=== PATIENT | female | born 1970 | race Caucasian/White ===

== ENCOUNTER 2022-02-18 14:59 | Inpatient (IN) | payer MEDICARE, MEDICAID ==
[~2022-02-18] VITALS: Ht 165.1 cm; Wt 66.2 kg
[2022-02-18] MEDS ORDERED: ACETAMINOPHEN 325MG TABLET PO NR (16:30)
[2022-02-18] MEDS ORDERED: IOHEXOL-350 100 ML BOTTLE ONE (17:15)
[2022-02-18] MEDS ORDERED: ACETAMINOPHEN 650MG SUPP PR ONE (17:45)
[2022-02-18 17:54] LABS: HEMATOCRIT. 35.9 % (36.0-48.0); MEAN CORPUSCULAR HEMOGLOBIN 31.9 pg (28.0-32.0); MEAN CORPUSCULAR VOLUME 95.6 fL (81.0-99.0); MEAN PLATELET VOLUME 9.2 fl (7.4-10.4); PLATELET 89 x1000/uL (130-400); RED BLOOD CELL COUNT 3.75 mill/uL (4.2-5.4); RED CELL DISTRIBUTION WIDTH 16.3 % (11.6-14.6)
[2022-02-18 18:13] LABS: CHLORIDE 108 mEq/L (98-107)
[2022-02-18 18:22] LABS: ETHANOL BLOOD < 10 mg/dL
[2022-02-18 18:27] LABS: CLARITY URINE CLOUDY (CLEAR); COLOR URINE YELLOW (YELLOW); KETONES URINE NEGATIVE (NEGATIVE); LEUKOCYTE ESTERASE URINE 3+ (NEGATIVE); NITRITE URINE NEGATIVE (NEGATIVE); OCCULT BLOOD URINE 3+ (NEGATIVE); PROTEIN URINE 2+ (NEGATIVE); SPECIFIC GRAVITY URINE 1.044 (1.005-1.030)
[2022-02-18 18:29] LABS: PLATELET ESTIMATE DECREASED
[2022-02-18 18:40] LABS: *AMPHETAMINES SCREEN URINE NEGATIVE (NEGATIVE); *BARBITURATES SCREEN URINE NEGATIVE (NEGATIVE); *BENZODIAZEPINES SCREEN URINE NEGATIVE (NEGATIVE); *COCAINE SCREEN URINE NEGATIVE (NEGATIVE); CANNABINOID URINE SCREEN NEGATIVE (NEGATIVE); METHADONE URINE SCREEN NEGATIVE (NEGATIVE); OPIATES URINE SCREEN NEGATIVE (NEGATIVE); PHENCYCLIDINE URINE SCREEN NEGATIVE (NEGATIVE)
[2022-02-18] MEDS ORDERED: SODIUM CHLORIDE 0.9% 1,000 ML IV ONE (18:45)
[2022-02-18] MEDS ORDERED: IPRATROPIUM/ALBUTEROL 0.5-3(2.5)MG/3ML NEB HHN PRN (19:15)
[2022-02-18] MEDS ORDERED: CLONIDINE 0.1MG TABLET PO PRN (19:15)
[2022-02-18] MEDS ORDERED: ACETAMINOPHEN 325MG TABLET PO PRN (19:15)
[2022-02-18] MEDS ORDERED: DIPHENHYDRAMINE 50MG/ML VIAL IV PRN (19:15)
[2022-02-18] MEDS ORDERED: ONDANSETRON HCL 4MG/2ML INJ IV PRN (19:15)
[2022-02-18] MEDS ORDERED: CEFTRIAXONE 1 G PREMIX 50 ML IV NR (19:30)
[2022-02-18] MEDS: SODIUM CHLORIDE 0.9% 1,000 ML IV SCH (20:20)
[2022-02-18 22:55] VITALS: BP 104/72
[2022-02-19] VITALS: BP 95/60
[2022-02-19 04:00] VITALS: BP 108/57
[2022-02-19 07:29] LABS: CHLORIDE 110 mEq/L (98-107)
[2022-02-19 08:00] VITALS: BP 108/58
[2022-02-19 08:07] LABS: BASOPHILS % 0.2 % (0.0-2.0); EOSINOPHILS % 0.2 % (0.0-5.0); HEMATOCRIT. 31.3 % (36.0-48.0); HEMOGLOBIN. 10.6 g/dL (12.0-16.0); LYMPHOCYTES % 9.3 % (20.0-50.0); MEAN CORPUSCULAR HEMOGLOBIN 31.8 pg (28.0-32.0); MEAN CORPUSCULAR VOLUME 94.3 fL (81.0-99.0); MEAN PLATELET VOLUME 9.2 fl (7.4-10.4); MONOCYTES % 12.5 % (2.0-8.0); NEUTROPHILS % 77.8 % (40.0-76.0); PLATELET 78 x1000/uL (130-400); RED BLOOD CELL COUNT 3.32 mill/uL (4.2-5.4); RED CELL DISTRIBUTION WIDTH 15.8 % (11.6-14.6)
[2022-02-19 12:00] VITALS: BP 108/58
[2022-02-19 16:00] VITALS: BP 103/49
[2022-02-19] MEDS: SODIUM CHLORIDE 0.9% 1,000 ML IV SCH (18:26)
[2022-02-19] MEDS: CEFTRIAXONE 1,000 MG in DEXTROSE 5% WATER 50 ML IV SCH (18:26)
[2022-02-19 20:00] VITALS: BP 121/62
[2022-02-20] VITALS: BP 106/66
[2022-02-20 04:00] VITALS: BP 144/66
[2022-02-20 08:00] VITALS: BP 116/66
[2022-02-20 12:00] VITALS: BP 120/50
[2022-02-20 16:00] VITALS: BP 118/49
[2022-02-20] MEDS: CEFTRIAXONE 1,000 MG in DEXTROSE 5% WATER 50 ML IV SCH (17:54)
[2022-02-20] MEDS ORDERED: ENOXAPARIN 80MG/0.8ML SYR SUBCUT SCH (21:00)
[2022-02-20 21:31] LABS: PROTHROMBIN TIME 10.9 sec (9.6-11.0)
[2022-02-21] VITALS (7 sets, daily range): BP systolic 96–121; BP diastolic 48–67
[2022-02-21] MEDS: SODIUM CHLORIDE 0.9% 1,000 ML IV SCH (00:40)
[2022-02-21 07:03] LABS: BASOPHILS % 0.5 % (0.0-2.0); EOSINOPHILS % 0.7 % (0.0-5.0); HEMATOCRIT. 31.3 % (36.0-48.0); HEMOGLOBIN. 10.5 g/dL (12.0-16.0); LYMPHOCYTES % 20.6 % (20.0-50.0); MEAN CORPUSCULAR HEMOGLOBIN 31.7 pg (28.0-32.0); MEAN CORPUSCULAR VOLUME 94.1 fL (81.0-99.0); MEAN PLATELET VOLUME 8.5 fl (7.4-10.4); MONOCYTES % 12.9 % (2.0-8.0); NEUTROPHILS % 65.3 % (40.0-76.0); PLATELET 120 x1000/uL (130-400); RED BLOOD CELL COUNT 3.33 mill/uL (4.2-5.4); RED CELL DISTRIBUTION WIDTH 15.9 % (11.6-14.6)
[2022-02-21 07:07] LABS: CHLORIDE 109 mEq/L (98-107)
[2022-02-21 07:30] LABS: HDL CHOLESTEROL 24 mg/dL (40-59); LDL CHOLESTEROL 66 mg/dL (5-100)
[2022-02-21] MEDS ORDERED: NITR-87 MT (11:24)
[2022-02-21] MEDS: LEVOTHYROXINE SODIUM 125MCG TABLET PO SCH (16:55)
[2022-02-21] MEDS: OMEPRAZOLE 20MG CAPSULE EXTENDED RELEASE PO SCH (16:55)
[2022-02-21] MEDS: LORATADINE 10MG TABLET PO SCH (16:55)
[2022-02-21] MEDS: CEFTRIAXONE 1,000 MG in DEXTROSE 5% WATER 50 ML IV SCH (17:59)
[2022-02-21] MEDS: OXYBUTYNIN CHLORIDE 5MG TABLET PO SCH (21:09)
[2022-02-21] MEDS: ATORVASTATIN CALCIUM 20MG TABLET PO SCH (21:09)
[2022-02-21] MEDS: DIVALPROEX SODIUM 500MG DR TABLET PO SCH (21:09)
[2022-02-21] MEDS: OLANZAPINE 5MG TABLET PO SCH (21:09)
[2022-02-21] MEDS: FLUTICASONE PROPIONATE 50MCG/SPRAY BOTTLE BOTHNSTRLS SCH (21:09)
[2022-02-21] MEDS: ENOXAPARIN 80MG/0.8ML SYR SUBCUT SCH (21:10)
[2022-02-22] VITALS: BP 115/63
[2022-02-22 04:00] VITALS: BP 106/42
[2022-02-22 08:00] VITALS: BP 92/45
[2022-02-22] MEDS: OMEPRAZOLE 20MG CAPSULE EXTENDED RELEASE PO SCH (08:16)
[2022-02-22] MEDS: LORATADINE 10MG TABLET PO SCH (08:16)
[2022-02-22] MEDS: LEVOTHYROXINE SODIUM 125MCG TABLET PO SCH (08:16)
[2022-02-22] MEDS: FLUTICASONE PROPIONATE 50MCG/SPRAY BOTTLE BOTHNSTRLS SCH ×2 (08:17→20:30)
[2022-02-22] MEDS: ENOXAPARIN 80MG/0.8ML SYR SUBCUT SCH ×2 (09:03→20:29)
[2022-02-22 11:59] VITALS: BP 90/59
[2022-02-22 16:00] VITALS: BP 90/54
[2022-02-22] MEDS: CEFTRIAXONE 1,000 MG in DEXTROSE 5% WATER 50 ML IV SCH (18:00)
[2022-02-22 20:00] VITALS: BP 98/64
[2022-02-22] MEDS: ATORVASTATIN CALCIUM 20MG TABLET PO SCH (20:28)
[2022-02-22] MEDS: DIVALPROEX SODIUM 500MG DR TABLET PO SCH (20:28)
[2022-02-22] MEDS: OXYBUTYNIN CHLORIDE 5MG TABLET PO SCH (20:29)
[2022-02-22] MEDS: OLANZAPINE 5MG TABLET PO SCH (20:32)
[2022-02-23] VITALS: BP 105/59
[2022-02-23 04:00] VITALS: BP 99/55
[2022-02-23] MEDS: OMEPRAZOLE 20MG CAPSULE EXTENDED RELEASE PO SCH (06:39)
[2022-02-23] MEDS: LEVOTHYROXINE SODIUM 125MCG TABLET PO SCH (06:40)
[2022-02-23 08:00] VITALS: BP 105/66
[2022-02-23] MEDS: ENOXAPARIN 80MG/0.8ML SYR SUBCUT SCH ×2 (08:55→21:20)
[2022-02-23] MEDS: LORATADINE 10MG TABLET PO SCH (08:55)
[2022-02-23] MEDS: FLUTICASONE PROPIONATE 50MCG/SPRAY BOTTLE BOTHNSTRLS SCH ×2 (08:55→21:19)
[2022-02-23 12:00] VITALS: BP 112/63
[2022-02-23 16:00] VITALS: BP 100/77
[2022-02-23 20:00] VITALS: BP 113/59
[2022-02-23] MEDS: CEFTRIAXONE 1,000 MG in DEXTROSE 5% WATER 50 ML IV SCH (21:19)
[2022-02-23] MEDS: ATORVASTATIN CALCIUM 20MG TABLET PO SCH (21:21)
[2022-02-23] MEDS: DIVALPROEX SODIUM 500MG DR TABLET PO SCH (21:22)
[2022-02-23] MEDS: OLANZAPINE 5MG TABLET PO SCH (21:22)
[2022-02-23] MEDS: OXYBUTYNIN CHLORIDE 5MG TABLET PO SCH (21:22)
[2022-02-24] VITALS: BP 103/56
[2022-02-24 04:00] VITALS: BP 119/67
[2022-02-24 08:00] VITALS: BP 108/68
[2022-02-24] MEDS: LEVOTHYROXINE SODIUM 125MCG TABLET PO SCH (09:21)
[2022-02-24] MEDS: LORATADINE 10MG TABLET PO SCH (09:21)
[2022-02-24] MEDS: OMEPRAZOLE 20MG CAPSULE EXTENDED RELEASE PO SCH (09:21)
[2022-02-24] MEDS: ENOXAPARIN 80MG/0.8ML SYR SUBCUT SCH (09:22)
[2022-02-24] MEDS: FLUTICASONE PROPIONATE 50MCG/SPRAY BOTTLE BOTHNSTRLS SCH (09:23)
[2022-02-24] MEDS ORDERED: FAMOTIDINE 20MG TABLET PO SCH (17:00)
== END 2022-02-24 17:50 | disposition home or self-care (01) | DRG 690 ==
LOC: ER 14:59 → 7WST 18:39 → EDBEDREQTM 18:45 → EDBEDREQ 18:45
PROVIDERS: ADMIT Internal Medicine; ATTEND Internal Medicine
DX: N39.0 Urinary tract infection, site not specified (principal); E44.0 Moderate protein-calorie malnutrition; F72 Severe intellectual disabilities; N17.9 Acute kidney failure, unspecified; G93.89 Other specified disorders of brain; E03.9 Hypothyroidism, unspecified; F31.9 Bipolar disorder, unspecified; R62.50 Unspecified lack of expected normal physiological development in childhood; I48.91 Unspecified atrial fibrillation
CPT/HCPCS: 36415; 70496; 70551; 71045; 80048; 80053; 80061; 80165; 80305; 80320; 81003; 83605; 83880; 84145; 84443; 84484; 85025; 87077; 87186; 87426; 87804; 92610; 93005; 93970; 97110; 97116; 97162; 97166; 97530; 97535; 99291; C1893; C9803; J0696; J1650; J7030; J7060; Q9967; G0480

== ENCOUNTER 2024-03-14 00:49 | Inpatient (IN) | payer MEDICARE, MEDICAID ==
[2024-03-14] VITALS (17 sets, daily range): BP systolic 97–107; BP diastolic 65–77; PULSE 115–150; RESP 16–29; TEMP 37.94748–37.9748; O2SAT 93–100
[~2024-03-14] VITALS: Ht 160 cm; Wt 62.6 kg
[~2024-03-14 00:49] MED LIST: NITR-87 MT
[2024-03-14] MEDS ORDERED: PIPERACILLIN/TAZO 3.375G/50ML 50 ML IV ONE (01:15)
[2024-03-14] MEDS: SUCCINYLCHOLINE CHLORIDE 200MG/10ML IV ONE (01:24)
[2024-03-14] MEDS: ETOMIDATE 2MG/ML 10ML VIAL IV ONE (01:24)
[2024-03-14] MEDS: SODIUM CHLORIDE 0.9% (SEPSIS BOLUS) IV ONE (01:28)
[2024-03-14 01:31] LABS: BASOPHILS % 0.5 % (0.0-2.0); EOSINOPHILS % 0.1 % (0.0-5.0); HEMATOCRIT. 42.3 % (36.0-48.0); HEMOGLOBIN. 14.2 g/dL (12.0-16.0); LYMPHOCYTES % 11.3 % (20.0-50.0); MEAN CORPUSCULAR HEMOGLOBIN 32.7 pg (28.0-32.0); MEAN CORPUSCULAR HGB CONC 33.6 g/dL (31.0-37.0); MEAN CORPUSCULAR VOLUME 97.2 fL (81.0-99.0); MONOCYTES % 9.4 % (2.0-8.0); NEUTROPHILS % 78.7 % (40.0-76.0); PLATELET 94 x1000/uL (130-400); RED BLOOD CELL COUNT 4.35 mill/uL (4.2-5.4); RED CELL DISTRIBUTION WIDTH 14.9 % (11.6-14.6); WHITE BLOOD COUNT 6.6 x1000/uL (4.5-11.0)
[2024-03-14] MEDS: PROPOFOL 10MG/ML 100ML 100 ML IV ONE (01:40)
[2024-03-14 02:04] LABS: CHLORIDE 106 mEq/L (98-107); POTASSIUM 4.9 mEq/L (3.5-5.1); SODIUM 143 mEq/L (136-145)
[2024-03-14 02:05] LABS: CALCIUM 9.2 mg/dL (8.7-10.4); CARBON DIOXIDE 31 mEq/L (21-32)
[2024-03-14 02:10] LABS: CREATININE 0.7 mg/dL (0.6-1.0); GLUCOSE 173 mg/dL (70-105); UREA NITROGEN BLOOD 38 mg/dL (9-23)
[2024-03-14 02:12] LABS: ALANINE AMINOTRANSFERASE 23 IU/L (10-49); ALBUMIN 3.7 g/dL (3.2-4.8); ASPARTATE AMINOTRANSFERASE 60 IU/L (<34); BILIRUBIN TOTAL 0.2 mg/dL (0.1-1.0); LACTIC ACID 2.5 mmol/L (0.4-2.0); PROTEIN TOTAL 5.9 g/dL (6.0-8.3); TROPONIN I HIGH SENSITIVITY 8 ng/L (3.0-34)
[2024-03-14 02:21] LABS: BILIRUBIN DIRECT < 0.1 mg/dL (<=3.0)
[2024-03-14] MEDS: PIPERACILLIN/TAZO 3.375G/100ML IV NR (02:54)
[2024-03-14] MEDS ORDERED: FENTANYL 2500MCG/250ML PMX 250 ML IV STA (03:20)
[2024-03-14] MEDS ORDERED: MIDAZOLAM HCL 100 MG in DEXT 5% WATER 80 ML IV ONE (03:30)
[2024-03-14 03:38] LABS: BG BASE EXCESS 2.2 mmol/L (-2.0-3.0); BG CARBOXYHEMOGLOBIN 0.3 % (0.5-1.5); BG DEOXYHEMOGLOBIN 11.5 % (0.0-5.0); BG FRACTION INSPIRED OXYGEN 100; BG HCO3 ACT 27.4 mmol/L (21.0-28.0); BG METHEMOGLOBIN 0.1 % (0.5-1.5); BG OXYGEN SATURATION 88.5 % (94.0-98.0); BG OXYHEMOGLOBIN 88.1 % (94.0-98.0); BG PCO2 44.8 mmHg (32.0-45.0); BG PH 7.405 (7.350-7.450); BG PO2 58.4 mmHg (83.0-108.0); BG SAMPLE SITE RIGHT BRACHIAL; BG TOTAL HEMOGLOBIN 14.3 g/dL (12.0-16.0); BG VENT MODE VENT - AC
[2024-03-14] MEDS: FENTANYL CITRATE 1,000 MCG in SODIUM CHLORIDE 0.9% 80 ML IV PRN ×2 (04:12→22:10)
[2024-03-14] MEDS: MIDAZOLAM 100MG/100ML PREMIX IV PRN (04:13)
[2024-03-14] MEDS: VANCOMYCIN 1G PREMIX 200 ML IV ONE (04:38)
[2024-03-14] MEDS: ACETAMINOPHEN 650MG SUPP PR SCH ×2 (04:55→07:14)
[2024-03-14 05:02] LABS: CLARITY URINE CLEAR (CLEAR); COLOR URINE YELLOW (YELLOW); GLUCOSE URINE NEGATIVE (NEGATIVE); KETONES URINE TRACE (NEGATIVE); LEUKOCYTE ESTERASE URINE NEGATIVE (NEGATIVE); NITRITE URINE NEGATIVE (NEGATIVE); OCCULT BLOOD URINE NEGATIVE (NEGATIVE); PROTEIN URINE 1+ (NEGATIVE); SPECIFIC GRAVITY URINE 1.028 (1.005-1.030); UROBILINOGEN URINE 0.2 E.U./dL (0.2-1.0)
[2024-03-14 05:33] LABS: PROTHROMBIN TIME 11.4 sec (9.6-11.0)
[2024-03-14 05:46] LABS: SQUAMOUS EPITHELIAL CELL URINE RARE /lpf (RARE/1+)
[2024-03-14 05:47] LABS: BACTERIA URINE NONE SEEN; RBC URINE 0-2 /hpf (0-2); WBC URINE 0-2 /hpf (0-2)
[2024-03-14] MEDS ORDERED: NOREPINEPHRINE 8 MG in DEXT 5% WATER 242 ML IV PRN (06:00)
[2024-03-14] MEDS: NOREPINEPHRINE 8MG/250ML PMX 250 ML IV PRN (06:01)
[2024-03-14] MEDS: SODIUM CHLORIDE 0.9% 1,000 ML IV ONE (07:02)
[2024-03-14] MEDS: IPRATROPIUM/ALBUTEROL 0.5-3(2.5)MG/3ML NEB HHN SCH (08:41)
[2024-03-14 08:45] LABS: BG CARBOXYHEMOGLOBIN 0.8 % (0.5-1.5); BG DEOXYHEMOGLOBIN 2.2 % (0.0-5.0); BG FRACTION INSPIRED OXYGEN 100; BG HCO3 ACT 26.1 mmol/L (21.0-28.0); BG METHEMOGLOBIN 0.2 % (0.5-1.5); BG OXYGEN SATURATION 97.8 % (94.0-98.0); BG OXYHEMOGLOBIN 96.8 % (94.0-98.0); BG PCO2 48.2 mmHg (32.0-45.0); BG PH 7.351 (7.350-7.450); BG PO2 105.7 mmHg (83.0-108.0); BG SAMPLE SITE RIGHT RADIAL; BG TOTAL HEMOGLOBIN 13.6 g/dL (12.0-16.0); BG VENT MODE VENT - AC
[2024-03-14] MEDS ORDERED: PHENYLEPHRINE 50 MG in DEXT 5% WATER 245 ML IV PRN (10:15)
[2024-03-14 10:33] LABS: BASOPHILS % 0.6 % (0.0-2.0); HEMATOCRIT. 45.2 % (36.0-48.0); HEMOGLOBIN. 14.7 g/dL (12.0-16.0); LYMPHOCYTES % 9.9 % (20.0-50.0); MEAN CORPUSCULAR HEMOGLOBIN 32.4 pg (28.0-32.0); MEAN CORPUSCULAR HGB CONC 32.5 g/dL (31.0-37.0); MEAN CORPUSCULAR VOLUME 99.5 fL (81.0-99.0); MEAN PLATELET VOLUME 10.2 fl (7.4-10.4); MONOCYTES % 11.2 % (2.0-8.0); NEUTROPHILS % 78.3 % (40.0-76.0); PLATELET 129 x1000/uL (130-400); RED BLOOD CELL COUNT 4.54 mill/uL (4.2-5.4); WHITE BLOOD COUNT 13.1 x1000/uL (4.5-11.0)
[2024-03-14 10:48] LABS: CHLORIDE 111 mEq/L (98-107); POTASSIUM 3.9 mEq/L (3.5-5.1)
[2024-03-14 10:49] LABS: SODIUM 147 mEq/L (136-145)
[2024-03-14 10:50] LABS: CARBON DIOXIDE 26 mEq/L (21-32)
[2024-03-14 10:55] LABS: CREATININE 0.7 mg/dL (0.6-1.0); GLUCOSE 163 mg/dL (70-105); UREA NITROGEN BLOOD 26 mg/dL (9-23)
[2024-03-14 10:56] LABS: ALANINE AMINOTRANSFERASE 169 IU/L (10-49); LACTIC ACID 2.6 mmol/L (0.4-2.0)
[2024-03-14 10:57] LABS: ALBUMIN 3.3 g/dL (3.2-4.8); ASPARTATE AMINOTRANSFERASE 313 IU/L (<34); BILIRUBIN TOTAL 1.6 mg/dL (0.1-1.0); PHOSPHORUS 2.7 mg/dL (2.5-4.9); PROTEIN TOTAL 5.2 g/dL (6.0-8.3)
[2024-03-14] MEDS: PIPERACILLIN/TAZO 3.375G/100ML 100 ML IV SCH (11:32)
[2024-03-14] MEDS: PANTOPRAZOLE SODIUM 40 MG/VIAL IV SCH (12:01)
[2024-03-14] MEDS: DIGOXIN 500MCG/2ML AMP IV NR (12:01)
[2024-03-14] MEDS: SODIUM CHLORIDE 0.9% 1,000 ML IV SCH (12:01)
[2024-03-14] MEDS: LIDOCAINE HCL 1% 10 MG/ML 10ML VIAL ONE (12:02)
[2024-03-14] MEDS: MAGNESIUM 2 G PREMIX 50 ML IV NR (14:23)
[2024-03-14] MEDS: SODIUM PHOSPHATE 15 MMOL in DEXT 5% WATER 245 ML IV NR (14:38)
[2024-03-14] MEDS: SODIUM CHLORIDE 0.45% 1,000 ML IV SCH (18:25)
[2024-03-14] MEDS ORDERED: FENTANYL 2500MCG/250ML PMX 250 ML IV PRN (21:30)
[2024-03-14] MEDS: PROPOFOL 10MG/ML 100ML 100 ML IV SCH (22:25)
[2024-03-15] VITALS (97 sets, daily range): BP systolic 83–166; BP diastolic 49–118; PULSE 59–112; RESP 16–28; TEMP 36.44736–37.16964; O2SAT 97–100
[2024-03-15] MEDS: PIPERACILLIN/TAZO 3.375G/50ML IV SCH (06:12)
[2024-03-15 07:25] LABS: BASOPHILS % 0.2 % (0.0-2.0); HEMATOCRIT. 34.9 % (36.0-48.0); HEMOGLOBIN. 11.7 g/dL (12.0-16.0); LYMPHOCYTES % 7.8 % (20.0-50.0); MEAN CORPUSCULAR HEMOGLOBIN 32.6 pg (28.0-32.0); MEAN CORPUSCULAR HGB CONC 33.5 g/dL (31.0-37.0); MEAN CORPUSCULAR VOLUME 97.3 fL (81.0-99.0); MEAN PLATELET VOLUME 9.2 fl (7.4-10.4); PLATELET 74 x1000/uL (130-400); RED BLOOD CELL COUNT 3.58 mill/uL (4.2-5.4); RED CELL DISTRIBUTION WIDTH 14.4 % (11.6-14.6); WHITE BLOOD COUNT 13.2 x1000/uL (4.5-11.0)
[2024-03-15 07:29] LABS: CARBON DIOXIDE 27 mEq/L (21-32); CHLORIDE 112 mEq/L (98-107); POTASSIUM 3.7 mEq/L (3.5-5.1); SODIUM 147 mEq/L (136-145)
[2024-03-15 07:30] LABS: CALCIUM 8.2 mg/dL (8.7-10.4)
[2024-03-15 07:35] LABS: CREATININE 0.5 mg/dL (0.6-1.0); GLUCOSE 112 mg/dL (70-105); UREA NITROGEN BLOOD 17 mg/dL (9-23)
[2024-03-15] MEDS ORDERED: HALOPERIDOL LACTATE 5MG/ML VIAL IM PRN (08:00)
[2024-03-15 09:39] LABS: BG BASE EXCESS 0.6 mmol/L (-2.0-3.0); BG CARBOXYHEMOGLOBIN 0.1 % (0.5-1.5); BG DEOXYHEMOGLOBIN 2.6 % (0.0-5.0); BG FRACTION INSPIRED OXYGEN 60; BG HCO3 ACT 25.4 mmol/L (21.0-28.0); BG METHEMOGLOBIN 0.3 % (0.5-1.5); BG OXYGEN SATURATION 97.4 % (94.0-98.0); BG PCO2 41.5 mmHg (32.0-45.0); BG PH 7.405 (7.350-7.450); BG PO2 95.2 mmHg (83.0-108.0); BG SAMPLE SITE RIGHT BRACHIAL; BG TOTAL HEMOGLOBIN 12.6 g/dL (12.0-16.0); BG VENT MODE VENT - AC
[2024-03-15] MEDS: VANCOMYCIN 750MG PREMIX 150 ML IV SCH (10:48)
[2024-03-15] MEDS ORDERED: SODIUM CHLORIDE 0.9% 1,000 ML IV NR (16:00)
[2024-03-15] MEDS: ALBUTEROL (0.083%) 2.5MG/3ML NEB HHN SCH (19:43)
[2024-03-15] MEDS: ACETYLCYSTEINE 200MG/ML 20% VIAL 4ML INH SCH (22:00)
[2024-03-16] VITALS (97 sets, daily range): BP systolic 67–202; BP diastolic 37–167; PULSE 53–145; RESP 15–27; TEMP 36.50292–37.16964; O2SAT 92–100
[2024-03-16] MEDS: SODIUM CHLORIDE 0.45% 1,000 ML IV SCH (02:31)
[2024-03-16 02:44] LABS: CHLORIDE 111 mEq/L (98-107); POTASSIUM 3.7 mEq/L (3.5-5.1); SODIUM 144 mEq/L (136-145)
[2024-03-16 02:45] LABS: CALCIUM 8.4 mg/dL (8.7-10.4); CARBON DIOXIDE 23 mEq/L (21-32)
[2024-03-16] MEDS: PROPOFOL 10MG/ML 100ML 100 ML IV PRN (02:49)
[2024-03-16 02:50] LABS: CREATININE 0.5 mg/dL (0.6-1.0); GLUCOSE 131 mg/dL (70-105); UREA NITROGEN BLOOD 14 mg/dL (9-23)
[2024-03-16 02:52] LABS: PHOSPHORUS 2.8 mg/dL (2.5-4.9)
[2024-03-16 03:48] LABS: HEMATOCRIT. 33.3 % (36.0-48.0); HEMOGLOBIN. 11.2 g/dL (12.0-16.0); MEAN CORPUSCULAR HEMOGLOBIN 32.3 pg (28.0-32.0); MEAN CORPUSCULAR HGB CONC 33.7 g/dL (31.0-37.0); MEAN CORPUSCULAR VOLUME 95.9 fL (81.0-99.0); MEAN PLATELET VOLUME 9.4 fl (7.4-10.4); PLATELET 52 x1000/uL (130-400); RED BLOOD CELL COUNT 3.48 mill/uL (4.2-5.4); RED CELL DISTRIBUTION WIDTH 14.1 % (11.6-14.6)
[2024-03-16 04:15] LABS: DIFFERENTIAL COMMENT 1
[2024-03-16 06:26] LABS: PLATELET ESTIMATE DECREASED
[2024-03-16 06:45] LABS: BASOPHILS % 0.2 % (0.0-2.0); DIFFERENTIAL COMMENT 0; EOSINOPHILS % 0.4 % (0.0-5.0); HEMATOCRIT. 33.1 % (36.0-48.0); HEMOGLOBIN. 11.6 g/dL (12.0-16.0); LYMPHOCYTES % 7.3 % (20.0-50.0); MEAN CORPUSCULAR HEMOGLOBIN 33.5 pg (28.0-32.0); MEAN CORPUSCULAR HGB CONC 34.9 g/dL (31.0-37.0); MEAN CORPUSCULAR VOLUME 96.2 fL (81.0-99.0); MONOCYTES % 4.1 % (2.0-8.0); PLATELET 53 x1000/uL (130-400); RED BLOOD CELL COUNT 3.45 mill/uL (4.2-5.4); RED CELL DISTRIBUTION WIDTH 13.8 % (11.6-14.6); WHITE BLOOD COUNT 6.2 x1000/uL (4.5-11.0)
[2024-03-16 06:56] LABS: CALCIUM 8.3 mg/dL (8.7-10.4); CHLORIDE 107 mEq/L (98-107); POTASSIUM 3.4 mEq/L (3.5-5.1); SODIUM 142 mEq/L (136-145)
[2024-03-16 06:57] LABS: CARBON DIOXIDE 26 mEq/L (21-32)
[2024-03-16 07:02] LABS: CREATININE 0.5 mg/dL (0.6-1.0); GLUCOSE 125 mg/dL (70-105); UREA NITROGEN BLOOD 14 mg/dL (9-23)
[2024-03-16] MEDS: KCL 20MEQ/100ML PREMIX 100 ML IV NR (08:13)
[2024-03-16] MEDS: SODIUM CHLORIDE 0.9% 500 ML IV ONE (08:25)
[2024-03-16] MEDS ORDERED: DEXTROSE 50% WATER 50ML SYRINGE IV PRN ×2 (09:15)
[2024-03-16 09:32] LABS: BG BASE EXCESS -3.6 mmol/L (-2.0-3.0); BG CARBOXYHEMOGLOBIN 0.3 % (0.5-1.5); BG FRACTION INSPIRED OXYGEN 60; BG HCO3 ACT 22.1 mmol/L (21.0-28.0); BG METHEMOGLOBIN 0.3 % (0.5-1.5); BG OXYHEMOGLOBIN 97.4 % (94.0-98.0); BG PCO2 42.3 mmHg (32.0-45.0); BG PH 7.335 (7.350-7.450); BG PO2 113.8 mmHg (83.0-108.0); BG SAMPLE SITE RIGHT RADIAL; BG TOTAL HEMOGLOBIN 11.3 g/dL (12.0-16.0); BG VENT MODE VENT - AC
[2024-03-16] MEDS: BLOOD SUGAR DIAGNOSTIC STRIP TEST SCH (12:57)
[2024-03-16] MEDS ORDERED: PROM6.2527 (16:40)
[2024-03-16] MEDS ORDERED: ATOR20TA65 (16:40)
[2024-03-16] MEDS ORDERED: LEVO125T8 (16:40)
[2024-03-16] MEDS ORDERED: MULT-1279 (16:40)
[2024-03-16] MEDS ORDERED: QUET50TA23 (16:40)
[2024-03-16] MEDS ORDERED: PROMETHAZINE 6.25 MG/5 ML PO PRN (16:45)
[2024-03-16] MEDS ORDERED: MIDAZOLAM 100MG/100ML PMX 100 ML IV PRN (20:45)
[2024-03-16] MEDS: MIDAZOLAM HCL 100 MG in SODIUM CHLORIDE 0.9% 100 ML IV PRN (20:49)
[2024-03-16] MEDS ORDERED: ATORVASTATIN CALCIUM 20MG TABLET PO SCH ×3 (21:00)
[2024-03-16] MEDS ORDERED: LEVETIRACETAM 1,000MG in NACL 100ML PREMIX IV SCH (21:00)
[2024-03-16] MEDS: QUETIAPINE FUMARATE 50MG TABLET PO SCH (21:29)
[2024-03-16] MEDS: BACLOFEN 10MG TABLET PO SCH (21:29)
[2024-03-16] MEDS: LEVETIRACETAM 1000MG PREMIX 100 ML IV SCH (21:29)
[2024-03-16] MEDS: MIDODRINE HCL 5MG TABLET PO SCH (21:30)
[2024-03-16] MEDS: SODIUM CHLORIDE 0.9% 1,000 ML IV SCH (22:46)
[2024-03-17] VITALS (95 sets, daily range): BP systolic 83–211; BP diastolic 40–119; PULSE 56–118; RESP 16–39; TEMP 36.50292–37.39188; O2SAT 90–100
[2024-03-17] MEDS: SODIUM CHLORIDE 3% FOR INH 4ML NEB INH SCH
[2024-03-17 06:01] LABS: HEMATOCRIT. 32.3 % (36.0-48.0); HEMOGLOBIN. 11.2 g/dL (12.0-16.0); MEAN CORPUSCULAR HEMOGLOBIN 33.1 pg (28.0-32.0); MEAN CORPUSCULAR HGB CONC 34.6 g/dL (31.0-37.0); MEAN CORPUSCULAR VOLUME 95.5 fL (81.0-99.0); MEAN PLATELET VOLUME 9.7 fl (7.4-10.4); PLATELET 57 x1000/uL (130-400); RED BLOOD CELL COUNT 3.38 mill/uL (4.2-5.4); RED CELL DISTRIBUTION WIDTH 13.8 % (11.6-14.6); WHITE BLOOD COUNT 3.6 x1000/uL (4.5-11.0)
[2024-03-17 06:11] LABS: CARBON DIOXIDE 22 mEq/L (21-32); CHLORIDE 109 mEq/L (98-107); POTASSIUM 3.6 mEq/L (3.5-5.1); SODIUM 141 mEq/L (136-145)
[2024-03-17 06:12] LABS: CALCIUM 7.9 mg/dL (8.7-10.4)
[2024-03-17 06:16] LABS: CREATININE 0.4 mg/dL (0.6-1.0); GLUCOSE 162 mg/dL (70-105)
[2024-03-17 06:17] LABS: TRIGLYCERIDE 831 mg/dL (0-150); UREA NITROGEN BLOOD 9 mg/dL (9-23)
[2024-03-17 06:19] LABS: PHOSPHORUS 3.1 mg/dL (2.5-4.9)
[2024-03-17 06:36] LABS: DIFFERENTIAL COMMENT 1
[2024-03-17] MEDS: MAGNESIUM 2 G PREMIX 50 ML IV NR (08:32)
[2024-03-17] MEDS: LEVOTHYROXINE SODIUM 125MCG TABLET PO SCH (08:33)
[2024-03-17 09:35] LABS: BG BASE EXCESS -2.3 mmol/L (-2.0-3.0); BG CARBOXYHEMOGLOBIN 0.3 % (0.5-1.5); BG FRACTION INSPIRED OXYGEN 40; BG HCO3 ACT 22.3 mmol/L (21.0-28.0); BG METHEMOGLOBIN 0.3 % (0.5-1.5); BG OXYHEMOGLOBIN 95.4 % (94.0-98.0); BG PH 7.387 (7.350-7.450); BG PO2 83.5 mmHg (83.0-108.0); BG SAMPLE SITE RIGHT RADIAL; BG TOTAL HEMOGLOBIN 12.2 g/dL (12.0-16.0); BG VENT MODE VENT - SIMV
[2024-03-17] MEDS: SODIUM CHLORIDE 0.9% 1,000 ML IV SCH (12:29)
[2024-03-17] MEDS: POTASSIUM CHLORIDE 20MEQ/PACKET PO NR (12:29)
[2024-03-17 12:36] LABS: NUCLEATED RED BLOOD CELLS 2 /100 WBC; PLATELET ESTIMATE MARKEDLY DECREASED
[2024-03-17] MEDS: VANCOMYCIN 1.25GM PMX (XELLIA) 250 ML IV SCH (12:39)
[2024-03-17] MEDS: CEFEPIME 2GM/50ML DUPLEX 50 ML IV SCH (14:01)
[2024-03-17] MEDS: LORAZEPAM 2MG/ML INJ IV PRN (15:26)
[2024-03-17] MEDS ORDERED: VALPROIC ACID 250MG CAPSULE PO SCH (18:00)
[2024-03-17] MEDS: VALPROATE SODIUM 250MG/5ML UDC PO SCH (18:04)
[2024-03-17] MEDS: VANCOMYCIN 750MG PREMIX 150 ML IV SCH (21:34)
[2024-03-18] VITALS (85 sets, daily range): BP systolic 87–139; BP diastolic 46–124; PULSE 63–117; RESP 13–25; TEMP 36.05844–37.16964; O2SAT 95–100
[2024-03-18 06:59] LABS: HEMATOCRIT. 33.5 % (36.0-48.0); HEMOGLOBIN. 11.1 g/dL (12.0-16.0); MEAN CORPUSCULAR HEMOGLOBIN 32.2 pg (28.0-32.0); MEAN CORPUSCULAR HGB CONC 33.2 g/dL (31.0-37.0); MEAN CORPUSCULAR VOLUME 96.9 fL (81.0-99.0); MEAN PLATELET VOLUME 9.6 fl (7.4-10.4); PLATELET 70 x1000/uL (130-400); RED BLOOD CELL COUNT 3.46 mill/uL (4.2-5.4); RED CELL DISTRIBUTION WIDTH 14.4 % (11.6-14.6); WHITE BLOOD COUNT 3.5 x1000/uL (4.5-11.0)
[2024-03-18 07:12] LABS: CHLORIDE 114 mEq/L (98-107); POTASSIUM 3.9 mEq/L (3.5-5.1); SODIUM 148 mEq/L (136-145)
[2024-03-18 07:13] LABS: CALCIUM 8.2 mg/dL (8.7-10.4); CARBON DIOXIDE 25 mEq/L (21-32)
[2024-03-18 07:18] LABS: CREATININE 0.4 mg/dL (0.6-1.0); GLUCOSE 169 mg/dL (70-105); UREA NITROGEN BLOOD 6 mg/dL (9-23)
[2024-03-18 07:36] LABS: DIFFERENTIAL COMMENT 1
[2024-03-18 09:56] LABS: BG BASE EXCESS 2.9 mmol/L (-2.0-3.0); BG CARBOXYHEMOGLOBIN 0.3 % (0.5-1.5); BG DEOXYHEMOGLOBIN 3.6 % (0.0-5.0); BG FRACTION INSPIRED OXYGEN 40; BG HCO3 ACT 27.5 mmol/L (21.0-28.0); BG METHEMOGLOBIN 0.3 % (0.5-1.5); BG OXYGEN SATURATION 96.4 % (94.0-98.0); BG OXYHEMOGLOBIN 95.8 % (94.0-98.0); BG PCO2 42.4 mmHg (32.0-45.0); BG PO2 87.6 mmHg (83.0-108.0); BG SAMPLE SITE LEFT RADIAL; BG TOTAL HEMOGLOBIN 11.5 g/dL (12.0-16.0); BG TOTAL RESPIRATORY RATE 17 b/min; BG VENT MODE VENT - AC
[2024-03-18 11:01] LABS: PLATELET ESTIMATE DECREASED
[2024-03-18] MEDS: MIDAZOLAM 100MG/100ML PMX 100 ML IV PRN (15:19)
[2024-03-18] MEDS ORDERED: FENTANYL CITRATE/PF 1,000 MCG in DEXT 5% WATER 80 ML IV PRN (16:15)
[2024-03-18] MEDS: LACOSAMIDE 100MG/10ML ORAL SOLN GT SCH (17:27)
[2024-03-18] MEDS ORDERED: LEVETIRACETAM 1,500MG in NACL 100ML PREMIX IV SCH (21:00)
[2024-03-18] MEDS: LEVETIRACETAM 1500MG PREMIX 100 ML IV SCH (21:07)
[2024-03-19] VITALS (102 sets, daily range): BP systolic 88–234; BP diastolic 48–212; PULSE 79–136; RESP 15–34; TEMP 36.00288–36.6696; O2SAT 91–100
[2024-03-19 06:15] LABS: HEMATOCRIT 32.8 % (36.0-48.0); HEMOGLOBIN 11.1 g/dL (12.0-16.0); MEAN CORPUSCULAR HEMOGLOBIN 32.6 pg (28.0-32.0); MEAN CORPUSCULAR HGB CONC 33.9 g/dL (31.0-37.0); MEAN CORPUSCULAR VOLUME 96.2 fL (81.0-99.0); PLATELET 91 x1000/uL (130-400); RED BLOOD CELL COUNT 3.41 mill/uL (4.2-5.4); RED CELL DISTRIBUTION WIDTH 14.7 % (11.6-14.6); WHITE BLOOD COUNT 4.1 x1000/uL (4.5-11.0)
[2024-03-19 06:32] LABS: CHLORIDE 111 mEq/L (98-107); POTASSIUM 4.5 mEq/L (3.5-5.1); SODIUM 149 mEq/L (136-145)
[2024-03-19 06:33] LABS: CALCIUM 8.7 mg/dL (8.7-10.4); CARBON DIOXIDE 29 mEq/L (21-32)
[2024-03-19 06:38] LABS: CREATININE 0.4 mg/dL (0.6-1.0); GLUCOSE 107 mg/dL (70-105); UREA NITROGEN BLOOD 9 mg/dL (9-23)
[2024-03-19] MEDS: SODIUM CHLORIDE 0.45% 1,000 ML IV SCH (09:33)
[2024-03-19] MEDS: POLYETHYLENE GLYCOL 3350 (17GM) 1 DOSE PACK PO SCH (09:33)
[2024-03-20] VITALS (43 sets, daily range): BP systolic 85–128; BP diastolic 50–81; PULSE 95–132; RESP 14–39; TEMP 36.05844–37.00296; O2SAT 92–98
[2024-03-20 07:30] LABS: CHLORIDE 107 mEq/L (98-107); POTASSIUM 4.3 mEq/L (3.5-5.1); SODIUM 145 mEq/L (136-145)
[2024-03-20 07:33] LABS: CARBON DIOXIDE 31 mEq/L (21-32)
[2024-03-20 07:37] LABS: INR 0.9; PARTIAL THROMBOPLASTIN TIME 28.2 sec (23.4-31.0); PROTHROMBIN TIME 9.8 sec (9.6-11.0)
[2024-03-20 07:38] LABS: CREATININE 0.4 mg/dL (0.6-1.0); GLUCOSE 127 mg/dL (70-105); UREA NITROGEN BLOOD 10 mg/dL (9-23)
[2024-03-20 07:40] LABS: ALANINE AMINOTRANSFERASE 299 IU/L (10-49); ALBUMIN 3.1 g/dL (3.2-4.8); ASPARTATE AMINOTRANSFERASE 136 IU/L (<34); BILIRUBIN TOTAL 0.5 mg/dL (0.1-1.0); PHOSPHORUS 3.5 mg/dL (2.5-4.9); PROTEIN TOTAL 4.9 g/dL (6.0-8.3)
[2024-03-20 08:01] LABS: HEMOGLOBIN. 10.4 g/dL (12.0-16.0); MEAN CORPUSCULAR HEMOGLOBIN 32.7 pg (28.0-32.0); MEAN CORPUSCULAR HGB CONC 33.6 g/dL (31.0-37.0); MEAN CORPUSCULAR VOLUME 97.2 fL (81.0-99.0); MEAN PLATELET VOLUME 9.1 fl (7.4-10.4); PLATELET 129 x1000/uL (130-400); RED BLOOD CELL COUNT 3.18 mill/uL (4.2-5.4); RED CELL DISTRIBUTION WIDTH 14.6 % (11.6-14.6); WHITE BLOOD COUNT 5.5 x1000/uL (4.5-11.0)
[2024-03-20 08:27] LABS: DIFFERENTIAL COMMENT 1
[2024-03-20] MEDS: MIDODRINE HCL 5MG TABLET PO SCH (09:00)
[2024-03-20 10:02] LABS: BG BASE EXCESS 4.7 mmol/L (-2.0-3.0); BG CARBOXYHEMOGLOBIN 0.3 % (0.5-1.5); BG DEOXYHEMOGLOBIN 5.9 % (0.0-5.0); BG FRACTION INSPIRED OXYGEN 40; BG HCO3 ACT 29.1 mmol/L (21.0-28.0); BG METHEMOGLOBIN 0.3 % (0.5-1.5); BG OXYGEN SATURATION 94.1 % (94.0-98.0); BG OXYHEMOGLOBIN 93.5 % (94.0-98.0); BG PCO2 42.6 mmHg (32.0-45.0); BG PH 7.453 (7.350-7.450); BG PO2 71.8 mmHg (83.0-108.0); BG SAMPLE SITE RIGHT RADIAL; BG TOTAL HEMOGLOBIN 9.9 g/dL (12.0-16.0); BG TOTAL RESPIRATORY RATE 12 b/min; BG VENT MODE VENT - SIMV
[2024-03-20 17:05] LABS: BG BASE EXCESS 4.7 mmol/L (-2.0-3.0); BG CARBOXYHEMOGLOBIN 0.3 % (0.5-1.5); BG FRACTION INSPIRED OXYGEN 50; BG HCO3 ACT 28.9 mmol/L (21.0-28.0); BG METHEMOGLOBIN 0.3 % (0.5-1.5); BG OXYHEMOGLOBIN 96.4 % (94.0-98.0); BG PCO2 41.5 mmHg (32.0-45.0); BG PH 7.461 (7.350-7.450); BG PO2 94.2 mmHg (83.0-108.0); BG SAMPLE SITE RIGHT RADIAL; BG TOTAL HEMOGLOBIN 11.3 g/dL (12.0-16.0); BG VENT MODE VENT - CPAP
[2024-03-20 21:59] LABS: ANISOCYTOSIS 1+; PLATELET ESTIMATE NORMAL
[2024-03-21] VITALS (55 sets, daily range): BP systolic 80–144; BP diastolic 18–120; PULSE 98–144; RESP 14–39; TEMP 36.05844–37.2252; O2SAT 91–98
[2024-03-21 06:06] LABS: HEMOGLOBIN. 9.9 g/dL (12.0-16.0); MEAN CORPUSCULAR HEMOGLOBIN 33.3 pg (28.0-32.0); MEAN CORPUSCULAR HGB CONC 34.3 g/dL (31.0-37.0); MEAN CORPUSCULAR VOLUME 97.3 fL (81.0-99.0); MEAN PLATELET VOLUME 8.8 fl (7.4-10.4); PLATELET 158 x1000/uL (130-400); RED BLOOD CELL COUNT 2.98 mill/uL (4.2-5.4); RED CELL DISTRIBUTION WIDTH 14.5 % (11.6-14.6); WHITE BLOOD COUNT 6.2 x1000/uL (4.5-11.0)
[2024-03-21] MEDS: AMPICILLIN 2GM/100ML 100 ML IV SCH (06:11)
[2024-03-21 06:43] LABS: CARBON DIOXIDE 28 mEq/L (21-32); CHLORIDE 106 mEq/L (98-107); POTASSIUM 4.1 mEq/L (3.5-5.1); SODIUM 140 mEq/L (136-145)
[2024-03-21 06:44] LABS: CALCIUM 9.1 mg/dL (8.7-10.4)
[2024-03-21 06:46] LABS: DIFFERENTIAL COMMENT 1
[2024-03-21 06:49] LABS: CREATININE 0.5 mg/dL (0.6-1.0); GLUCOSE 93 mg/dL (70-105); UREA NITROGEN BLOOD 12 mg/dL (9-23)
[2024-03-21 06:51] LABS: PHOSPHORUS 3.5 mg/dL (2.5-4.9)
[2024-03-21 07:10] LABS: INR 0.9; PARTIAL THROMBOPLASTIN TIME 27.4 sec (23.4-31.0); PROTHROMBIN TIME 10.2 sec (9.6-11.0)
[2024-03-21 09:59] LABS: BG BASE EXCESS 5.3 mmol/L (-2.0-3.0); BG CARBOXYHEMOGLOBIN 0.3 % (0.5-1.5); BG DEOXYHEMOGLOBIN 4.2 % (0.0-5.0); BG FRACTION INSPIRED OXYGEN 50; BG HCO3 ACT 29.6 mmol/L (21.0-28.0); BG METHEMOGLOBIN 0.3 % (0.5-1.5); BG OXYGEN SATURATION 95.8 % (94.0-98.0); BG OXYHEMOGLOBIN 95.2 % (94.0-98.0); BG PCO2 42.4 mmHg (32.0-45.0); BG PH 7.462 (7.350-7.450); BG PO2 79.6 mmHg (83.0-108.0); BG SAMPLE SITE RIGHT RADIAL; BG TOTAL HEMOGLOBIN 10.6 g/dL (12.0-16.0); BG VENT MODE VENT - SIMV
[2024-03-21 10:42] LABS: BG BASE EXCESS 3.5 mmol/L (-2.0-3.0); BG CARBOXYHEMOGLOBIN 0.2 % (0.5-1.5); BG DEOXYHEMOGLOBIN 4.7 % (0.0-5.0); BG FRACTION INSPIRED OXYGEN 40; BG HCO3 ACT 27.4 mmol/L (21.0-28.0); BG METHEMOGLOBIN 0.7 % (0.5-1.5); BG OXYGEN SATURATION 95.3 % (94.0-98.0); BG OXYHEMOGLOBIN 94.4 % (94.0-98.0); BG PCO2 39.1 mmHg (32.0-45.0); BG PH 7.464 (7.350-7.450); BG PO2 83.3 mmHg (83.0-108.0); BG SAMPLE SITE RIGHT RADIAL; BG TOTAL HEMOGLOBIN 11.3 g/dL (12.0-16.0); BG VENT MODE VENT - CPAP
[2024-03-21 11:30] LABS: PLATELET ESTIMATE NORMAL
[2024-03-21] MEDS: AMPICILLIN 1,000 MG in SODIUM CHLORIDE 0.9% 50 ML IV SCH ×2 (17:55→23:41)
[2024-03-21] MEDS ORDERED: AMPICILLIN 1,000 MG in SODIUM CHLORIDE 0.9% 50 ML IV SCH (18:00)
[2024-03-21] MEDS ORDERED: VANCOMYCIN 1.25GM PMX (XELLIA) 250 ML IV NR (23:00)
[2024-03-21] MEDS: HALOPERIDOL LACTATE 5MG/ML VIAL IM PRN (23:41)
[2024-03-22] VITALS (67 sets, daily range): BP systolic 76–194; BP diastolic 26–172; PULSE 115–146; RESP 17–41; TEMP 36.16956–37.72524; O2SAT 88–100
[2024-03-22] MEDS ORDERED: AMPICILLIN 2GM/100ML 100 ML IV SCH
[2024-03-22 06:20] LABS: BASOPHILS % 0.2 % (0.0-2.0); EOSINOPHILS % 1.4 % (0.0-5.0); HEMATOCRIT. 28.4 % (36.0-48.0); HEMOGLOBIN. 9.8 g/dL (12.0-16.0); LYMPHOCYTES % 11.8 % (20.0-50.0); MEAN CORPUSCULAR HEMOGLOBIN 33.4 pg (28.0-32.0); MEAN CORPUSCULAR HGB CONC 34.5 g/dL (31.0-37.0); MEAN PLATELET VOLUME 8.7 fl (7.4-10.4); NEUTROPHILS % 78.6 % (40.0-76.0); PLATELET 178 x1000/uL (130-400); RED BLOOD CELL COUNT 2.93 mill/uL (4.2-5.4); RED CELL DISTRIBUTION WIDTH 14.6 % (11.6-14.6); WHITE BLOOD COUNT 7.6 x1000/uL (4.5-11.0)
[2024-03-22 06:32] LABS: CALCIUM 8.8 mg/dL (8.7-10.4); CARBON DIOXIDE 30 mEq/L (21-32); CHLORIDE 105 mEq/L (98-107); POTASSIUM 4.4 mEq/L (3.5-5.1); SODIUM 140 mEq/L (136-145)
[2024-03-22 06:33] LABS: INR 0.9; PARTIAL THROMBOPLASTIN TIME 24.4 sec (23.4-31.0); PROTHROMBIN TIME 10.4 sec (9.6-11.0)
[2024-03-22 06:37] LABS: CREATININE 0.5 mg/dL (0.6-1.0); GLUCOSE 138 mg/dL (70-105); IRON 48 ug/dL (50-170)
[2024-03-22 06:38] LABS: UREA NITROGEN BLOOD 16 mg/dL (9-23)
[2024-03-22 06:40] LABS: PHOSPHORUS 3.5 mg/dL (2.5-4.9); TOTAL IRON BINDING CAPACITY 442 ug/dl (250-425)
[2024-03-22 08:14] LABS: BG BASE EXCESS 5.6 mmol/L (-2.0-3.0); BG DEOXYHEMOGLOBIN 11.1 % (0.0-5.0); BG FRACTION INSPIRED OXYGEN 100; BG HCO3 ACT 29.7 mmol/L (21.0-28.0); BG METHEMOGLOBIN 0.3 % (0.5-1.5); BG OXYGEN SATURATION 88.9 % (94.0-98.0); BG OXYHEMOGLOBIN 88.6 % (94.0-98.0); BG PCO2 41.2 mmHg (32.0-45.0); BG PH 7.475 (7.350-7.450); BG PO2 55.2 mmHg (83.0-108.0); BG SAMPLE SITE RIGHT RADIAL; BG TOTAL HEMOGLOBIN 10.4 g/dL (12.0-16.0); BG VENT MODE HIGH FLOW
[2024-03-22] MEDS: IPRATROPIUM/ALBUTEROL 0.5-3(2.5)MG/3ML NEB HHN SCH (09:03)
[2024-03-22] MEDS: MAGNESIUM 1 G PREMIX 100 ML IV NR (09:23)
[2024-03-22] MEDS ORDERED: VANCOMYCIN 750MG/150ML (BAXTER) IV SCH (11:00)
[2024-03-22] MEDS: DIGOXIN 500MCG/2ML AMP IV SCH (14:27)
[2024-03-22] MEDS: FERROUS SULFATE 300MG/5ML UDC PO SCH (14:28)
[2024-03-22] MEDS: IPRATROPIUM BROMIDE (0.02%) 0.5MG/2.5ML NEB HHN SCH (14:45)
[2024-03-22] MEDS: FUROSEMIDE 40MG/4ML VIAL IVP NR (16:15)
[2024-03-23] VITALS (58 sets, daily range): BP systolic 65–171; BP diastolic 51–139; PULSE 117–151; RESP 12–39; TEMP 36.16956–37.7808; O2SAT 87–100
[2024-03-23 06:42] LABS: CHLORIDE 103 mEq/L (98-107); POTASSIUM 4.2 mEq/L (3.5-5.1); SODIUM 141 mEq/L (136-145)
[2024-03-23 06:43] LABS: CARBON DIOXIDE 28 mEq/L (21-32)
[2024-03-23 06:48] LABS: CREATININE 0.6 mg/dL (0.6-1.0); GLUCOSE 155 mg/dL (70-105); UREA NITROGEN BLOOD 18 mg/dL (9-23)
[2024-03-23 06:50] LABS: ALANINE AMINOTRANSFERASE 113 IU/L (10-49); ALBUMIN 3.6 g/dL (3.2-4.8); ASPARTATE AMINOTRANSFERASE 62 IU/L (<34); EOSINOPHILS % 0.4 % (0.0-5.0); HEMOGLOBIN. 10.2 g/dL (12.0-16.0); LYMPHOCYTES % 8.9 % (20.0-50.0); MEAN CORPUSCULAR HEMOGLOBIN 31.9 pg (28.0-32.0); MEAN CORPUSCULAR VOLUME 96.6 fL (81.0-99.0); MEAN PLATELET VOLUME 8.7 fl (7.4-10.4); MONOCYTES % 5.8 % (2.0-8.0); NEUTROPHILS % 84.9 % (40.0-76.0); PHOSPHORUS 3.5 mg/dL (2.5-4.9); PLATELET 209 x1000/uL (130-400); RED BLOOD CELL COUNT 3.21 mill/uL (4.2-5.4); WHITE BLOOD COUNT 11.1 x1000/uL (4.5-11.0)
[2024-03-23 06:51] LABS: BILIRUBIN TOTAL 0.7 mg/dL (0.1-1.0); PROTEIN TOTAL 6.1 g/dL (6.0-8.3)
[2024-03-23 06:58] LABS: INR 0.9; PARTIAL THROMBOPLASTIN TIME 29.7 sec (23.4-31.0); PROTHROMBIN TIME 10.5 sec (9.6-11.0)
[2024-03-23 09:15] LABS: BG BASE EXCESS 6.8 mmol/L (-2.0-3.0); BG CARBOXYHEMOGLOBIN 0.4 % (0.5-1.5); BG DEOXYHEMOGLOBIN 8.5 % (0.0-5.0); BG FRACTION INSPIRED OXYGEN 100; BG HCO3 ACT 30.8 mmol/L (21.0-28.0); BG METHEMOGLOBIN 0.1 % (0.5-1.5); BG OXYGEN SATURATION 91.5 % (94.0-98.0); BG PCO2 41.6 mmHg (32.0-45.0); BG PH 7.487 (7.350-7.450); BG PO2 59.2 mmHg (83.0-108.0); BG SAMPLE SITE RIGHT RADIAL; BG TOTAL HEMOGLOBIN 10.1 g/dL (12.0-16.0); BG VENT MODE HIGH FLOW
[2024-03-23] MEDS: DIGOXIN 500MCG/2ML AMP IV NR (11:24)
[2024-03-23 12:05] LABS: BG BASE EXCESS 7.3 mmol/L (-2.0-3.0); BG CARBOXYHEMOGLOBIN 0.3 % (0.5-1.5); BG DEOXYHEMOGLOBIN 11.6 % (0.0-5.0); BG FRACTION INSPIRED OXYGEN 100; BG HCO3 ACT 30.8 mmol/L (21.0-28.0); BG METHEMOGLOBIN 0.3 % (0.5-1.5); BG OXYGEN SATURATION 88.3 % (94.0-98.0); BG OXYHEMOGLOBIN 87.8 % (94.0-98.0); BG PCO2 39.4 mmHg (32.0-45.0); BG PH 7.511 (7.350-7.450); BG PO2 54.1 mmHg (83.0-108.0); BG SAMPLE SITE RIGHT RADIAL; BG TOTAL HEMOGLOBIN 11.2 g/dL (12.0-16.0); BG VENT MODE HIGH FLOW
[2024-03-23] MEDS ORDERED: PROPOFOL 10MG/ML 100ML 100 ML IV PRN (13:30)
[2024-03-23] MEDS ORDERED: FENTANYL 2500MCG/250ML PMX 250 ML IV ONE (14:00)
[2024-03-23 14:57] LABS: BG BASE EXCESS 5.4 mmol/L (-2.0-3.0); BG CARBOXYHEMOGLOBIN 0.3 % (0.5-1.5); BG DEOXYHEMOGLOBIN 3.9 % (0.0-5.0); BG FRACTION INSPIRED OXYGEN 100; BG HCO3 ACT 29.2 mmol/L (21.0-28.0); BG METHEMOGLOBIN 0.3 % (0.5-1.5); BG OXYGEN SATURATION 96.1 % (94.0-98.0); BG OXYHEMOGLOBIN 95.5 % (94.0-98.0); BG PCO2 39.8 mmHg (32.0-45.0); BG PH 7.484 (7.350-7.450); BG PO2 83.9 mmHg (83.0-108.0); BG SAMPLE SITE RIGHT RADIAL; BG TOTAL HEMOGLOBIN 10.4 g/dL (12.0-16.0); BG VENT MODE VENT - AC
[2024-03-23] MEDS: ENOXAPARIN 40MG/0.4ML SYR SUBCUT SCH (16:30)
[2024-03-23] MEDS ORDERED: SODIUM CHLORIDE 3% FOR INH 4ML NEB INH NR (17:00)
[2024-03-23] MEDS: FENTANYL CITRATE/PF 1,000 MCG in DEXT 5% WATER 80 ML IV PRN (18:01)
[2024-03-23] MEDS: SODIUM CHLORIDE 3% FOR INH 15ML NEB INH NR (21:12)
[2024-03-24] VITALS (98 sets, daily range): BP systolic 57–184; BP diastolic 38–137; PULSE 56–153; RESP 14–35; TEMP 36.16956–38.3364; O2SAT 93–100
[2024-03-24] MEDS: FENTANYL CITRATE/PF 1,000 MCG in SODIUM CHLORIDE 0.9% 80 ML IV PRN (03:01)
[2024-03-24 06:06] LABS: BASOPHILS % 0.1 % (0.0-2.0); EOSINOPHILS % 0.7 % (0.0-5.0); HEMATOCRIT. 25.5 % (36.0-48.0); HEMOGLOBIN. 8.7 g/dL (12.0-16.0); LYMPHOCYTES % 11.1 % (20.0-50.0); MEAN CORPUSCULAR HEMOGLOBIN 32.6 pg (28.0-32.0); NEUTROPHILS % 83.1 % (40.0-76.0); PLATELET 195 x1000/uL (130-400); RED BLOOD CELL COUNT 2.66 mill/uL (4.2-5.4); RED CELL DISTRIBUTION WIDTH 14.8 % (11.6-14.6); WHITE BLOOD COUNT 9.5 x1000/uL (4.5-11.0)
[2024-03-24 06:07] LABS: PARTIAL THROMBOPLASTIN TIME 31.5 sec (23.4-31.0); PROTHROMBIN TIME 10.8 sec (9.6-11.0)
[2024-03-24 06:17] LABS: CHLORIDE 103 mEq/L (98-107); POTASSIUM 4.1 mEq/L (3.5-5.1); SODIUM 139 mEq/L (136-145)
[2024-03-24 06:20] LABS: CALCIUM 8.5 mg/dL (8.7-10.4); CARBON DIOXIDE 30 mEq/L (21-32)
[2024-03-24 06:25] LABS: GLUCOSE 138 mg/dL (70-105); UREA NITROGEN BLOOD 22 mg/dL (9-23)
[2024-03-24 06:27] LABS: ALANINE AMINOTRANSFERASE 104 IU/L (10-49); ALBUMIN 3.2 g/dL (3.2-4.8); ASPARTATE AMINOTRANSFERASE 97 IU/L (<34); BILIRUBIN TOTAL 0.6 mg/dL (0.1-1.0); PHOSPHORUS 3.1 mg/dL (2.5-4.9); PROTEIN TOTAL 5.2 g/dL (6.0-8.3)
[2024-03-24 07:15] LABS: CREATININE 0.4 mg/dL (0.6-1.0)
[2024-03-24] MEDS: ACETAMINOPHEN 650MG/20.3ML UDC PO PRN (08:34)
[2024-03-24] MEDS: MAGNESIUM 2 G PREMIX 50 ML IV NR (08:40)
[2024-03-24 09:28] LABS: BG BASE EXCESS 5.1 mmol/L (-2.0-3.0); BG CARBOXYHEMOGLOBIN 0.3 % (0.5-1.5); BG DEOXYHEMOGLOBIN 1.3 % (0.0-5.0); BG FRACTION INSPIRED OXYGEN 100; BG HCO3 ACT 29.2 mmol/L (21.0-28.0); BG METHEMOGLOBIN 0.3 % (0.5-1.5); BG OXYGEN SATURATION 98.7 % (94.0-98.0); BG OXYHEMOGLOBIN 98.1 % (94.0-98.0); BG PCO2 41.2 mmHg (32.0-45.0); BG PH 7.469 (7.350-7.450); BG PO2 119.6 mmHg (83.0-108.0); BG SAMPLE SITE LEFT RADIAL; BG TOTAL HEMOGLOBIN 9.5 g/dL (12.0-16.0); BG VENT MODE VENT - AC
[2024-03-24] MEDS: SODIUM CHLORIDE 0.9% 1,000 ML IV ONE (09:52)
[2024-03-24] MEDS: DEXMEDETOMIDINE 400 MCG/100 ML 100 ML IV PRN (10:57)
[2024-03-24 12:34] LABS: BASOPHILS % 0.1 % (0.0-2.0); EOSINOPHILS % 1.4 % (0.0-5.0); HEMATOCRIT. 24.4 % (36.0-48.0); MEAN CORPUSCULAR HEMOGLOBIN 31.9 pg (28.0-32.0); MEAN CORPUSCULAR HGB CONC 32.6 g/dL (31.0-37.0); MEAN CORPUSCULAR VOLUME 97.9 fL (81.0-99.0); MEAN PLATELET VOLUME 8.9 fl (7.4-10.4); MONOCYTES % 4.1 % (2.0-8.0); NEUTROPHILS % 82.4 % (40.0-76.0); PLATELET 185 x1000/uL (130-400); RED BLOOD CELL COUNT 2.49 mill/uL (4.2-5.4); RED CELL DISTRIBUTION WIDTH 14.9 % (11.6-14.6); WHITE BLOOD COUNT 9.6 x1000/uL (4.5-11.0)
[2024-03-24 12:47] LABS: CARBON DIOXIDE 24 mEq/L (21-32); CHLORIDE 108 mEq/L (98-107); POTASSIUM 3.5 mEq/L (3.5-5.1); SODIUM 143 mEq/L (136-145)
[2024-03-24 12:48] LABS: CALCIUM 7.3 mg/dL (8.7-10.4)
[2024-03-24 12:53] LABS: CREATININE 0.3 mg/dL (0.6-1.0); GLUCOSE 120 mg/dL (70-105); UREA NITROGEN BLOOD 18 mg/dL (9-23)
[2024-03-24 13:20] LABS: TROPONIN I HIGH SENSITIVITY < 4 ng/L (3.0-34)
[2024-03-24] MEDS: VANCOMYCIN 1.25GM PMX (XELLIA) 250 ML IV SCH (13:41)
[2024-03-24] MEDS: PIPERACILLIN/TAZO 3.375G/50ML 50 ML IV SCH (13:41)
[2024-03-24] MEDS: SODIUM CHLORIDE 0.9% 1,000 ML IV SCH (14:42)
[2024-03-24 14:45] LABS: CLARITY URINE CLEAR (CLEAR); COLOR URINE DARK YELLOW (YELLOW); GLUCOSE URINE NEGATIVE (NEGATIVE); KETONES URINE NEGATIVE (NEGATIVE); LEUKOCYTE ESTERASE URINE TRACE (NEGATIVE); NITRITE URINE NEGATIVE (NEGATIVE); OCCULT BLOOD URINE 3+ (NEGATIVE); PROTEIN URINE 1+ (NEGATIVE); SPECIFIC GRAVITY URINE 1.026 (1.005-1.030)
[2024-03-24 15:06] LABS: RBC URINE 0-2 /hpf (0-2); WBC URINE 0-2 /hpf (0-2)
[2024-03-24 15:07] LABS: BACTERIA URINE 1+; SQUAMOUS EPITHELIAL CELL URINE FEW /lpf (RARE/1+); YEAST URINE NONE SEEN
[2024-03-24] MEDS: CALCIUM CHLORIDE 1GM/10ML SYR IV NR (15:14)
[2024-03-24] MEDS ORDERED: PHENYLEPHRINE 50MG/250ML PMX 250 ML IV PRN (16:00)
[2024-03-24] MEDS: LORAZEPAM 2MG/ML INJ IV PRN (16:15)
[2024-03-24 18:38] LABS: BG BASE EXCESS 1.4 mmol/L (-2.0-3.0); BG CARBOXYHEMOGLOBIN 0.3 % (0.5-1.5); BG DEOXYHEMOGLOBIN 6.9 % (0.0-5.0); BG FRACTION INSPIRED OXYGEN 40; BG METHEMOGLOBIN 0.3 % (0.5-1.5); BG OXYGEN SATURATION 93.1 % (94.0-98.0); BG OXYHEMOGLOBIN 92.5 % (94.0-98.0); BG PCO2 41.3 mmHg (32.0-45.0); BG PH 7.417 (7.350-7.450); BG PO2 69.8 mmHg (83.0-108.0); BG SAMPLE SITE RIGHT RADIAL; BG TOTAL HEMOGLOBIN 10.3 g/dL (12.0-16.0); BG VENT MODE VENT - AC
[2024-03-24 19:20] LABS: T4 FREE 1.08 ng/dL (0.89-1.76); THYROID STIMULATING HORMONE 5.92 uIU/mL (0.55-4.78)
[2024-03-24] MEDS: VANCOMYCIN 750MG PMX (XELLIA) 150 ML IV SCH (23:00)
[2024-03-25] VITALS (92 sets, daily range): BP systolic 75–262; BP diastolic 43–216; PULSE 48–183; RESP 13–38; TEMP 36.22512–37.72524; O2SAT 90–100
[2024-03-25] MEDS: ALBUMIN HUMAN 25GM/500ML (5%) IV NR (01:05)
[2024-03-25] MEDS: PHENYLEPHRINE 100 MG in DEXT 5% WATER 250 ML IV PRN (02:03)
[2024-03-25] MEDS: SODIUM CHLORIDE 3% FOR INH 4ML NEB INH SCH (04:22)
[2024-03-25 06:14] LABS: BASOPHILS % 0.1 % (0.0-2.0); EOSINOPHILS % 2.1 % (0.0-5.0); HEMATOCRIT. 25.3 % (36.0-48.0); HEMOGLOBIN. 8.5 g/dL (12.0-16.0); MEAN CORPUSCULAR HEMOGLOBIN 33.1 pg (28.0-32.0); MEAN CORPUSCULAR HGB CONC 33.7 g/dL (31.0-37.0); MEAN CORPUSCULAR VOLUME 98.3 fL (81.0-99.0); MEAN PLATELET VOLUME 9.4 fl (7.4-10.4); MONOCYTES % 5.1 % (2.0-8.0); NEUTROPHILS % 76.7 % (40.0-76.0); PLATELET 212 x1000/uL (130-400); RED BLOOD CELL COUNT 2.58 mill/uL (4.2-5.4); RED CELL DISTRIBUTION WIDTH 14.8 % (11.6-14.6); WHITE BLOOD COUNT 8.9 x1000/uL (4.5-11.0)
[2024-03-25 06:42] LABS: CARBON DIOXIDE 28 mEq/L (21-32); CHLORIDE 107 mEq/L (98-107); POTASSIUM 4.3 mEq/L (3.5-5.1); SODIUM 142 mEq/L (136-145)
[2024-03-25 06:43] LABS: CALCIUM 9.3 mg/dL (8.7-10.4)
[2024-03-25 06:48] LABS: GLUCOSE 84 mg/dL (70-105); UREA NITROGEN BLOOD 14 mg/dL (9-23)
[2024-03-25 06:50] LABS: PHOSPHORUS 3.4 mg/dL (2.5-4.9)
[2024-03-25] MEDS: MIDODRINE HCL 5MG TABLET PO SCH ×2 (08:22→21:16)
[2024-03-25 08:46] LABS: CREATININE 0.5 mg/dL (0.6-1.0)
[2024-03-25] MEDS: MAGNESIUM 2 G PREMIX 50 ML IV NR (11:18)
[2024-03-25] MEDS: SODIUM CHLORIDE 0.9% 1,000 ML IV SCH (14:40)
[2024-03-25] MEDS: IPRATROPIUM/ALBUTEROL 0.5-3(2.5)MG/3ML NEB HHN PRN (16:49)
[2024-03-25] MEDS: METHYLPREDNISOLONE SOD SUCC 40MG/ML (ACT-O-VIAL) IV SCH (17:22)
[2024-03-26] VITALS (108 sets, daily range): BP systolic 81–241; BP diastolic 25–209; PULSE 52–190; RESP 14–43; TEMP 36.22512–37.2252; O2SAT 89–100
[2024-03-26 06:16] LABS: CARBON DIOXIDE 23 mEq/L (21-32); CHLORIDE 106 mEq/L (98-107); POTASSIUM 4.9 mEq/L (3.5-5.1); SODIUM 139 mEq/L (136-145)
[2024-03-26 06:17] LABS: CALCIUM 8.5 mg/dL (8.7-10.4)
[2024-03-26 06:22] LABS: CREATININE 0.5 mg/dL (0.6-1.0); GLUCOSE 124 mg/dL (70-105); UREA NITROGEN BLOOD 15 mg/dL (9-23)
[2024-03-26 09:58] LABS: PHOSPHORUS 3.3 mg/dL (2.5-4.9)
[2024-03-26 10:02] LABS: BG BASE EXCESS 3.3 mmol/L (-2.0-3.0); BG CARBOXYHEMOGLOBIN 0.3 % (0.5-1.5); BG DEOXYHEMOGLOBIN 8.2 % (0.0-5.0); BG FRACTION INSPIRED OXYGEN 40; BG HCO3 ACT 27.1 mmol/L (21.0-28.0); BG METHEMOGLOBIN 0.3 % (0.5-1.5); BG OXYGEN SATURATION 91.8 % (94.0-98.0); BG OXYHEMOGLOBIN 91.2 % (94.0-98.0); BG PCO2 37.9 mmHg (32.0-45.0); BG PH 7.472 (7.350-7.450); BG PO2 63.1 mmHg (83.0-108.0); BG SAMPLE SITE RIGHT RADIAL; BG TOTAL HEMOGLOBIN 9.2 g/dL (12.0-16.0); BG VENT MODE VENT - AC
[2024-03-26 10:16] LABS: HEMATOCRIT. 24.5 % (36.0-48.0); HEMOGLOBIN. 7.7 g/dL (12.0-16.0); MEAN CORPUSCULAR HEMOGLOBIN 31.8 pg (28.0-32.0); MEAN CORPUSCULAR HGB CONC 31.5 g/dL (31.0-37.0); MEAN CORPUSCULAR VOLUME 100.9 fL (81.0-99.0); MEAN PLATELET VOLUME 9.5 fl (7.4-10.4); PLATELET 228 x1000/uL (130-400); RED BLOOD CELL COUNT 2.43 mill/uL (4.2-5.4); RED CELL DISTRIBUTION WIDTH 15.5 % (11.6-14.6); WHITE BLOOD COUNT 6.9 x1000/uL (4.5-11.0)
[2024-03-26 10:21] LABS: DIFFERENTIAL COMMENT 1
[2024-03-26 13:12] LABS: PLATELET ESTIMATE NORMAL
[2024-03-26] MEDS: INSULIN LISPRO 100 UNITS/ML SUBCUT SCH (13:34)
[2024-03-26] MEDS: DILTIAZEM HCL 5MG/ML 5ML VIAL IV NR (14:05)
[2024-03-26] MEDS: DILTIAZEM HCL 125 MG in DEXT 5% WATER 100 ML IV PRN (16:39)
[2024-03-26] MEDS: BLOOD SUGAR DIAGNOSTIC STRIP TEST SCH (17:19)
[2024-03-26] MEDS: METHYLPREDNISOLONE SOD SUCC 40MG/ML (ACT-O-VIAL) IV SCH (18:08)
[2024-03-26] MEDS: MAGNESIUM 1 G PREMIX 100 ML IV ONE (18:08)
[2024-03-26] MEDS: VANCOMYCIN 1000MG/250ML 250 ML IV SCH (20:29)
[2024-03-26] MEDS: LORAZEPAM 2MG/ML INJ IV PRN (20:44)
[2024-03-26] MEDS: ACETYLCYSTEINE 200MG/ML 20% VIAL 4ML INH SCH (21:11)
[2024-03-27] VITALS (99 sets, daily range): BP systolic 88–176; BP diastolic 53–153; PULSE 47–135; RESP 14–40; TEMP 36.61404–37.2; O2SAT 92–100
[2024-03-27 06:16] LABS: CHLORIDE 109 mEq/L (98-107); POTASSIUM 4.5 mEq/L (3.5-5.1); SODIUM 144 mEq/L (136-145)
[2024-03-27 06:18] LABS: CARBON DIOXIDE 24 mEq/L (21-32)
[2024-03-27 06:19] LABS: CALCIUM 9.2 mg/dL (8.7-10.4)
[2024-03-27 06:22] LABS: UREA NITROGEN BLOOD 25 mg/dL (9-23)
[2024-03-27 06:24] LABS: ALBUMIN 3.8 g/dL (3.2-4.8); CREATININE 0.5 mg/dL (0.6-1.0); GLUCOSE 192 mg/dL (70-105)
[2024-03-27 06:25] LABS: ALANINE AMINOTRANSFERASE 94 IU/L (10-49)
[2024-03-27 06:26] LABS: ASPARTATE AMINOTRANSFERASE 59 IU/L (<34); BILIRUBIN DIRECT 0.2 mg/dL (<=3.0); BILIRUBIN TOTAL 0.4 mg/dL (0.1-1.0); PHOSPHORUS 3.2 mg/dL (2.5-4.9)
[2024-03-27 06:31] LABS: BASOPHILS % 0.1 % (0.0-2.0); EOSINOPHILS % 0.1 % (0.0-5.0); HEMATOCRIT. 28.2 % (36.0-48.0); HEMOGLOBIN. 9.3 g/dL (12.0-16.0); LYMPHOCYTES % 8.9 % (20.0-50.0); MEAN CORPUSCULAR HEMOGLOBIN 32.6 pg (28.0-32.0); MEAN CORPUSCULAR HGB CONC 33.1 g/dL (31.0-37.0); MEAN CORPUSCULAR VOLUME 98.6 fL (81.0-99.0); MEAN PLATELET VOLUME 9.4 fl (7.4-10.4); MONOCYTES % 2.9 % (2.0-8.0); PLATELET 299 x1000/uL (130-400); RED BLOOD CELL COUNT 2.86 mill/uL (4.2-5.4); RED CELL DISTRIBUTION WIDTH 15.2 % (11.6-14.6); WHITE BLOOD COUNT 5.5 x1000/uL (4.5-11.0)
[2024-03-27 08:55] LABS: BG BASE EXCESS 0.7 mmol/L (-2.0-3.0); BG CARBOXYHEMOGLOBIN 0.6 % (0.5-1.5); BG DEOXYHEMOGLOBIN 5.1 % (0.0-5.0); BG FRACTION INSPIRED OXYGEN 40; BG HCO3 ACT 23.9 mmol/L (21.0-28.0); BG METHEMOGLOBIN 0.3 % (0.5-1.5); BG OXYGEN SATURATION 94.9 % (94.0-98.0); BG PCO2 32.8 mmHg (32.0-45.0); BG PO2 76.6 mmHg (83.0-108.0); BG SAMPLE SITE RIGHT RADIAL; BG TOTAL HEMOGLOBIN 9.2 g/dL (12.0-16.0); BG VENT MODE VENT - AC
[2024-03-27 12:24] LABS: BG BASE EXCESS 2.2 mmol/L (-2.0-3.0); BG CARBOXYHEMOGLOBIN 0.4 % (0.5-1.5); BG DEOXYHEMOGLOBIN 5.1 % (0.0-5.0); BG FRACTION INSPIRED OXYGEN 40; BG HCO3 ACT 26.2 mmol/L (21.0-28.0); BG METHEMOGLOBIN 0.1 % (0.5-1.5); BG OXYGEN SATURATION 94.9 % (94.0-98.0); BG OXYHEMOGLOBIN 94.4 % (94.0-98.0); BG PCO2 37.9 mmHg (32.0-45.0); BG PH 7.457 (7.350-7.450); BG PO2 76.7 mmHg (83.0-108.0); BG SAMPLE SITE RIGHT RADIAL; BG TOTAL HEMOGLOBIN 9.1 g/dL (12.0-16.0); BG VENT MODE VENT - CPAP
[2024-03-27] MEDS: OLANZAPINE 10 MG/VIAL IM PRN (15:55)
[2024-03-27 18:47] LABS: BG BASE EXCESS 4.3 mmol/L (-2.0-3.0); BG CARBOXYHEMOGLOBIN 0.2 % (0.5-1.5); BG DEOXYHEMOGLOBIN 5.6 % (0.0-5.0); BG FRACTION INSPIRED OXYGEN 40; BG HCO3 ACT 27.9 mmol/L (21.0-28.0); BG METHEMOGLOBIN 0.3 % (0.5-1.5); BG OXYGEN SATURATION 94.4 % (94.0-98.0); BG OXYHEMOGLOBIN 93.9 % (94.0-98.0); BG PCO2 37.3 mmHg (32.0-45.0); BG PH 7.491 (7.350-7.450); BG PO2 70.4 mmHg (83.0-108.0); BG SAMPLE SITE RIGHT RADIAL; BG VENT MODE VENT - SIMV
[2024-03-27] MEDS: ALBUTEROL (0.5%) 2.5MG/0.5ML NEB HHN SCH (20:32)
[2024-03-27] MEDS: SODIUM CHLORIDE 3% FOR INH 4ML NEB INH SCH (20:32)
[2024-03-27] MEDS: HYDROXYZINE 25MG TABLET PO PRN (22:46)
[2024-03-28] VITALS (69 sets, daily range): BP systolic 90–195; BP diastolic 54–173; PULSE 61–133; RESP 12–44; TEMP 36.1–37.3; O2SAT 96–100
[2024-03-28 07:08] LABS: CARBON DIOXIDE 27 mEq/L (21-32); CHLORIDE 107 mEq/L (98-107); POTASSIUM 4.1 mEq/L (3.5-5.1); SODIUM 143 mEq/L (136-145)
[2024-03-28 07:09] LABS: CALCIUM 8.9 mg/dL (8.7-10.4)
[2024-03-28 07:14] LABS: CREATININE 0.5 mg/dL (0.6-1.0); GLUCOSE 138 mg/dL (70-105); UREA NITROGEN BLOOD 26 mg/dL (9-23)
[2024-03-28 07:25] LABS: BASOPHILS % 0.1 % (0.0-2.0); HEMATOCRIT. 29.7 % (36.0-48.0); HEMOGLOBIN. 9.8 g/dL (12.0-16.0); LYMPHOCYTES % 19.8 % (20.0-50.0); MEAN CORPUSCULAR HEMOGLOBIN 32.6 pg (28.0-32.0); MEAN CORPUSCULAR HGB CONC 32.9 g/dL (31.0-37.0); MEAN CORPUSCULAR VOLUME 99.2 fL (81.0-99.0); MEAN PLATELET VOLUME 9.2 fl (7.4-10.4); NEUTROPHILS % 72.1 % (40.0-76.0); PLATELET 350 x1000/uL (130-400); RED CELL DISTRIBUTION WIDTH 15.4 % (11.6-14.6); WHITE BLOOD COUNT 6.4 x1000/uL (4.5-11.0)
[2024-03-28 12:16] LABS: BG BASE EXCESS 2.2 mmol/L (-2.0-3.0); BG CARBOXYHEMOGLOBIN 0.5 % (0.5-1.5); BG DEOXYHEMOGLOBIN 3.4 % (0.0-5.0); BG FRACTION INSPIRED OXYGEN 40; BG HCO3 ACT 25.8 mmol/L (21.0-28.0); BG METHEMOGLOBIN 0.3 % (0.5-1.5); BG OXYGEN SATURATION 96.6 % (94.0-98.0); BG OXYHEMOGLOBIN 95.8 % (94.0-98.0); BG PCO2 36.4 mmHg (32.0-45.0); BG PH 7.469 (7.350-7.450); BG PO2 90.4 mmHg (83.0-108.0); BG SAMPLE SITE RIGHT RADIAL; BG TOTAL HEMOGLOBIN 9.1 g/dL (12.0-16.0); BG VENT MODE VENT - SIMV
[2024-03-28] MEDS: METHYLPREDNISOLONE SOD SUCC 40MG/ML (ACT-O-VIAL) IV SCH (12:57)
[2024-03-28] MEDS: VANCOMYCIN 750MG PREMIX 150 ML IV SCH (12:59)
[2024-03-28 18:51] LABS: BG BASE EXCESS 0.9 mmol/L (-2.0-3.0); BG CARBOXYHEMOGLOBIN 0.3 % (0.5-1.5); BG DEOXYHEMOGLOBIN 1.7 % (0.0-5.0); BG FRACTION INSPIRED OXYGEN 35; BG HCO3 ACT 24.6 mmol/L (21.0-28.0); BG METHEMOGLOBIN 0.3 % (0.5-1.5); BG OXYGEN SATURATION 98.3 % (94.0-98.0); BG OXYHEMOGLOBIN 97.7 % (94.0-98.0); BG PCO2 35.9 mmHg (32.0-45.0); BG PH 7.454 (7.350-7.450); BG PO2 113.7 mmHg (83.0-108.0); BG VENT MODE VENT - CPAP
[2024-03-29] VITALS (55 sets, daily range): BP systolic 72–195; BP diastolic 49–184; PULSE 60–139; RESP 14–34; TEMP 37–37.2; O2SAT 98–100
[2024-03-29 05:47] LABS: BASOPHILS % 0.1 % (0.0-2.0); HEMATOCRIT. 28.7 % (36.0-48.0); HEMOGLOBIN. 9.6 g/dL (12.0-16.0); LYMPHOCYTES % 9.1 % (20.0-50.0); MEAN CORPUSCULAR HEMOGLOBIN 32.3 pg (28.0-32.0); MEAN CORPUSCULAR HGB CONC 33.3 g/dL (31.0-37.0); MEAN CORPUSCULAR VOLUME 96.9 fL (81.0-99.0); MEAN PLATELET VOLUME 8.7 fl (7.4-10.4); NEUTROPHILS % 85.8 % (40.0-76.0); PLATELET 376 x1000/uL (130-400); RED BLOOD CELL COUNT 2.96 mill/uL (4.2-5.4); RED CELL DISTRIBUTION WIDTH 15.4 % (11.6-14.6); WHITE BLOOD COUNT 7.8 x1000/uL (4.5-11.0)
[2024-03-29 05:52] LABS: CARBON DIOXIDE 26 mEq/L (21-32); CHLORIDE 103 mEq/L (98-107); POTASSIUM 4.3 mEq/L (3.5-5.1); SODIUM 139 mEq/L (136-145)
[2024-03-29 05:53] LABS: CALCIUM 9.2 mg/dL (8.7-10.4)
[2024-03-29 05:57] LABS: CREATININE 0.5 mg/dL (0.6-1.0); GLUCOSE 188 mg/dL (70-105)
[2024-03-29 05:58] LABS: UREA NITROGEN BLOOD 23 mg/dL (9-23)
[2024-03-29 06:00] LABS: PHOSPHORUS 3.3 mg/dL (2.5-4.9)
[2024-03-29 08:26] LABS: BG BASE EXCESS 3.2 mmol/L (-2.0-3.0); BG CARBOXYHEMOGLOBIN 0.3 % (0.5-1.5); BG DEOXYHEMOGLOBIN 3.6 % (0.0-5.0); BG FRACTION INSPIRED OXYGEN 35; BG METHEMOGLOBIN 0.3 % (0.5-1.5); BG OXYGEN SATURATION 96.4 % (94.0-98.0); BG OXYHEMOGLOBIN 95.8 % (94.0-98.0); BG PCO2 38.2 mmHg (32.0-45.0); BG PH 7.467 (7.350-7.450); BG PO2 84.2 mmHg (83.0-108.0); BG SAMPLE SITE RIGHT RADIAL; BG TOTAL HEMOGLOBIN 11.1 g/dL (12.0-16.0); BG VENT MODE VENT - AC
[2024-03-29] MEDS: LEVETIRACETAM 500MG/5ML CUP PO SCH (09:50)
[2024-03-29 11:48] LABS: BG BASE EXCESS 1.9 mmol/L (-2.0-3.0); BG CARBOXYHEMOGLOBIN 0.5 % (0.5-1.5); BG DEOXYHEMOGLOBIN 2.7 % (0.0-5.0); BG FRACTION INSPIRED OXYGEN 35; BG HCO3 ACT 26.1 mmol/L (21.0-28.0); BG METHEMOGLOBIN 0.1 % (0.5-1.5); BG OXYGEN SATURATION 97.3 % (94.0-98.0); BG OXYHEMOGLOBIN 96.7 % (94.0-98.0); BG PH 7.443 (7.350-7.450); BG PO2 95.5 mmHg (83.0-108.0); BG SAMPLE SITE RIGHT RADIAL; BG VENT MODE VENT - CPAP
[2024-03-29] MEDS: HYDRALAZINE HCL 50MG TABLET PO PRN (21:14)
[2024-03-30] VITALS (74 sets, daily range): BP systolic 99–165; BP diastolic 56–113; PULSE 78–123; RESP 12–26; TEMP 36.7–38.6; O2SAT 98–100
[2024-03-30] MEDS: HYDRALAZINE HCL 50MG TABLET PO SCH (05:48)
[2024-03-30 08:02] LABS: BASOPHILS % 0.1 % (0.0-2.0); EOSINOPHILS % 0.2 % (0.0-5.0); HEMATOCRIT. 35.2 % (36.0-48.0); HEMOGLOBIN. 11.8 g/dL (12.0-16.0); LYMPHOCYTES % 22.6 % (20.0-50.0); MEAN CORPUSCULAR HEMOGLOBIN 32.9 pg (28.0-32.0); MEAN CORPUSCULAR HGB CONC 33.4 g/dL (31.0-37.0); MEAN CORPUSCULAR VOLUME 98.4 fL (81.0-99.0); MEAN PLATELET VOLUME 8.6 fl (7.4-10.4); NEUTROPHILS % 67.1 % (40.0-76.0); PLATELET 461 x1000/uL (130-400); RED BLOOD CELL COUNT 3.57 mill/uL (4.2-5.4); RED CELL DISTRIBUTION WIDTH 16.3 % (11.6-14.6); WHITE BLOOD COUNT 10.7 x1000/uL (4.5-11.0)
[2024-03-30 08:03] LABS: CHLORIDE 102 mEq/L (98-107); POTASSIUM 4.6 mEq/L (3.5-5.1); SODIUM 141 mEq/L (136-145)
[2024-03-30 08:04] LABS: CARBON DIOXIDE 27 mEq/L (21-32)
[2024-03-30 08:05] LABS: CALCIUM 9.8 mg/dL (8.7-10.4)
[2024-03-30 08:09] LABS: CREATININE 0.6 mg/dL (0.6-1.0); GLUCOSE 101 mg/dL (70-105)
[2024-03-30 08:10] LABS: UREA NITROGEN BLOOD 27 mg/dL (9-23)
[2024-03-30 08:12] LABS: PHOSPHORUS 3.8 mg/dL (2.5-4.9)
[2024-03-30 08:17] LABS: BG BASE EXCESS 3.7 mmol/L (-2.0-3.0); BG DEOXYHEMOGLOBIN 2.3 % (0.0-5.0); BG FRACTION INSPIRED OXYGEN 35; BG HCO3 ACT 27.1 mmol/L (21.0-28.0); BG OXYGEN SATURATION 97.7 % (94.0-98.0); BG OXYHEMOGLOBIN 97.7 % (94.0-98.0); BG PCO2 36.6 mmHg (32.0-45.0); BG PH 7.487 (7.350-7.450); BG PO2 97.8 mmHg (83.0-108.0); BG TOTAL HEMOGLOBIN 12.2 g/dL (12.0-16.0); BG VENT MODE VENT - AC
[2024-03-30] MEDS: HYDROXYZINE 25MG TABLET PO PRN (13:46)
[2024-03-30] MEDS: METOPROLOL TARTRATE 50MG TABLET PO SCH (20:57)
[2024-03-31] VITALS (37 sets, daily range): BP systolic 82–134; BP diastolic 38–84; PULSE 91–126; RESP 19–31; TEMP 36.5–37.7; O2SAT 96–100
[2024-03-31 06:49] LABS: BASOPHILS % 0.2 % (0.0-2.0); EOSINOPHILS % 1.2 % (0.0-5.0); HEMATOCRIT. 36.5 % (36.0-48.0); LYMPHOCYTES % 24.2 % (20.0-50.0); MEAN CORPUSCULAR HEMOGLOBIN 32.4 pg (28.0-32.0); MEAN CORPUSCULAR HGB CONC 32.9 g/dL (31.0-37.0); MEAN CORPUSCULAR VOLUME 98.4 fL (81.0-99.0); MEAN PLATELET VOLUME 8.9 fl (7.4-10.4); MONOCYTES % 8.5 % (2.0-8.0); NEUTROPHILS % 65.9 % (40.0-76.0); PLATELET 372 x1000/uL (130-400); RED BLOOD CELL COUNT 3.71 mill/uL (4.2-5.4); RED CELL DISTRIBUTION WIDTH 16.5 % (11.6-14.6); WHITE BLOOD COUNT 7.6 x1000/uL (4.5-11.0)
[2024-03-31 07:04] LABS: CARBON DIOXIDE 28 mEq/L (21-32); CHLORIDE 102 mEq/L (98-107); POTASSIUM 4.6 mEq/L (3.5-5.1); SODIUM 139 mEq/L (136-145)
[2024-03-31 07:05] LABS: CALCIUM 9.4 mg/dL (8.7-10.4)
[2024-03-31 07:09] LABS: CREATININE 0.5 mg/dL (0.6-1.0)
[2024-03-31 07:10] LABS: GLUCOSE 128 mg/dL (70-105); UREA NITROGEN BLOOD 22 mg/dL (9-23)
[2024-03-31 07:12] LABS: PHOSPHORUS 3.2 mg/dL (2.5-4.9)
[2024-03-31 08:41] LABS: BG BASE EXCESS 3.3 mmol/L (-2.0-3.0); BG CARBOXYHEMOGLOBIN 0.1 % (0.5-1.5); BG DEOXYHEMOGLOBIN 4.4 % (0.0-5.0); BG FRACTION INSPIRED OXYGEN 30; BG HCO3 ACT 27.4 mmol/L (21.0-28.0); BG METHEMOGLOBIN 0.3 % (0.5-1.5); BG OXYGEN SATURATION 95.6 % (94.0-98.0); BG OXYHEMOGLOBIN 95.2 % (94.0-98.0); BG PCO2 39.8 mmHg (32.0-45.0); BG PH 7.456 (7.350-7.450); BG PO2 79.5 mmHg (83.0-108.0); BG SAMPLE SITE RIGHT RADIAL; BG TOTAL HEMOGLOBIN 12.3 g/dL (12.0-16.0); BG VENT MODE T PIECE
[2024-04-01] VITALS (42 sets, daily range): BP systolic 104–161; BP diastolic 57–99; PULSE 91–141; RESP 19–36; TEMP 36.5–37.4; O2SAT 93–100
[2024-04-01] MEDS: BLOOD SUGAR DIAGNOSTIC STRIP TEST SCH
[2024-04-01] MEDS: INSULIN LISPRO 100 UNITS/ML SUBCUT SCH
[2024-04-01 16:51] LABS: BASOPHILS % 0.2 % (0.0-2.0); EOSINOPHILS % 1.3 % (0.0-5.0); HEMATOCRIT. 37.6 % (36.0-48.0); HEMOGLOBIN. 12.4 g/dL (12.0-16.0); LYMPHOCYTES % 20.6 % (20.0-50.0); MEAN CORPUSCULAR HEMOGLOBIN 32.3 pg (28.0-32.0); MEAN CORPUSCULAR HGB CONC 32.8 g/dL (31.0-37.0); MEAN CORPUSCULAR VOLUME 98.5 fL (81.0-99.0); MEAN PLATELET VOLUME 8.7 fl (7.4-10.4); MONOCYTES % 6.8 % (2.0-8.0); NEUTROPHILS % 71.1 % (40.0-76.0); PLATELET 339 x1000/uL (130-400); RED BLOOD CELL COUNT 3.82 mill/uL (4.2-5.4); RED CELL DISTRIBUTION WIDTH 16.2 % (11.6-14.6); WHITE BLOOD COUNT 8.5 x1000/uL (4.5-11.0)
[2024-04-01 16:53] LABS: CHLORIDE 104 mEq/L (98-107); POTASSIUM 4.6 mEq/L (3.5-5.1); SODIUM 139 mEq/L (136-145)
[2024-04-01 16:54] LABS: CALCIUM 9.5 mg/dL (8.7-10.4); CARBON DIOXIDE 27 mEq/L (21-32)
[2024-04-01 16:59] LABS: CREATININE 0.5 mg/dL (0.6-1.0); GLUCOSE 113 mg/dL (70-105)
[2024-04-01 17:00] LABS: UREA NITROGEN BLOOD 24 mg/dL (9-23)
[2024-04-02] VITALS (57 sets, daily range): BP systolic 98–142; BP diastolic 47–103; PULSE 109–140; RESP 19–37; TEMP 37.1–37.8; O2SAT 92–100
[2024-04-02] MEDS: SODIUM CHLORIDE 3% FOR INH 4ML NEB INH SCH (01:16)
[2024-04-02 06:39] LABS: CALCIUM 9.3 mg/dL (8.7-10.4); CARBON DIOXIDE 25 mEq/L (21-32); CHLORIDE 103 mEq/L (98-107); POTASSIUM 4.5 mEq/L (3.5-5.1); SODIUM 139 mEq/L (136-145)
[2024-04-02 06:45] LABS: CREATININE 0.5 mg/dL (0.6-1.0); GLUCOSE 132 mg/dL (70-105)
[2024-04-02 06:46] LABS: UREA NITROGEN BLOOD 24 mg/dL (9-23)
[2024-04-02 06:48] LABS: PHOSPHORUS 3.4 mg/dL (2.5-4.9)
[2024-04-02 07:10] LABS: BASOPHILS % 0.2 % (0.0-2.0); EOSINOPHILS % 0.7 % (0.0-5.0); HEMATOCRIT. 36.7 % (36.0-48.0); HEMOGLOBIN. 12.1 g/dL (12.0-16.0); LYMPHOCYTES % 10.7 % (20.0-50.0); MEAN CORPUSCULAR HEMOGLOBIN 32.5 pg (28.0-32.0); MEAN CORPUSCULAR HGB CONC 32.8 g/dL (31.0-37.0); MEAN PLATELET VOLUME 9.2 fl (7.4-10.4); MONOCYTES % 5.3 % (2.0-8.0); NEUTROPHILS % 83.1 % (40.0-76.0); PLATELET 270 x1000/uL (130-400); RED BLOOD CELL COUNT 3.71 mill/uL (4.2-5.4); RED CELL DISTRIBUTION WIDTH 16.2 % (11.6-14.6); WHITE BLOOD COUNT 10.4 x1000/uL (4.5-11.0)
[2024-04-02] MEDS: ALBUTEROL (0.5%) 2.5MG/0.5ML NEB HHN ONE (08:10)
[2024-04-02] MEDS: ALBUTEROL (0.083%) 2.5MG/3ML NEB ONE (08:35)
[2024-04-02] MEDS: SODIUM CHLORIDE 0.9% 1,000 ML IV SCH (10:05)
[2024-04-02] MEDS: DEXT 5%/0.9% NACL 1,000 ML IV SCH (12:49)
[2024-04-02] MEDS: IPRATROPIUM BROMIDE (0.02%) 0.5MG/2.5ML NEB HHN SCH (13:13)
[2024-04-03] VITALS (54 sets, daily range): BP systolic 94–171; BP diastolic 38–159; PULSE 109–166; RESP 16–41; TEMP 36.9–38.2; O2SAT 84–100
[2024-04-03] MEDS: HYDRALAZINE 20MG/ML VIAL IV NR (05:41)
[2024-04-03] MEDS: HYDROXYZINE 25MG TABLET PO NR (06:11)
[2024-04-03] MEDS ORDERED: FENTANYL 2500MCG/250ML PMX 250 ML IV ONE (06:30)
[2024-04-03] MEDS: PROPOFOL 10MG/ML 100ML 100 ML IV PRN (06:38)
[2024-04-03] MEDS: FENTANYL CITRATE 1,000 MCG in SODIUM CHLORIDE 0.9% 80 ML IV PRN (06:50)
[2024-04-03 06:59] LABS: CHLORIDE 105 mEq/L (98-107); POTASSIUM 4.5 mEq/L (3.5-5.1); SODIUM 141 mEq/L (136-145)
[2024-04-03 07:00] LABS: CALCIUM 9.3 mg/dL (8.7-10.4); CARBON DIOXIDE 27 mEq/L (21-32)
[2024-04-03 07:05] LABS: CREATININE 0.4 mg/dL (0.6-1.0); GLUCOSE 96 mg/dL (70-105); UREA NITROGEN BLOOD 18 mg/dL (9-23)
[2024-04-03 07:07] LABS: BASOPHILS % 0.2 % (0.0-2.0); EOSINOPHILS % 1.4 % (0.0-5.0); HEMOGLOBIN. 11.5 g/dL (12.0-16.0); LYMPHOCYTES % 11.5 % (20.0-50.0); MEAN CORPUSCULAR HEMOGLOBIN 31.9 pg (28.0-32.0); MEAN CORPUSCULAR VOLUME 96.8 fL (81.0-99.0); MEAN PLATELET VOLUME 9.2 fl (7.4-10.4); MONOCYTES % 3.8 % (2.0-8.0); NEUTROPHILS % 83.1 % (40.0-76.0); PLATELET 298 x1000/uL (130-400); RED BLOOD CELL COUNT 3.62 mill/uL (4.2-5.4); RED CELL DISTRIBUTION WIDTH 16.5 % (11.6-14.6)
[2024-04-03 14:42] LABS: BG BASE EXCESS 5.4 mmol/L (-2.0-3.0); BG CARBOXYHEMOGLOBIN 0.4 % (0.5-1.5); BG DEOXYHEMOGLOBIN 10.1 % (0.0-5.0); BG METHEMOGLOBIN 0.3 % (0.5-1.5); BG OXYGEN SATURATION 89.8 % (94.0-98.0); BG OXYHEMOGLOBIN 89.2 % (94.0-98.0); BG PCO2 43.8 mmHg (32.0-45.0); BG PH 7.453 (7.350-7.450); BG PO2 54.3 mmHg (83.0-108.0); BG SAMPLE SITE LEFT RADIAL
[2024-04-03] MEDS: METOPROLOL TARTRATE 50MG TABLET PO SCH (18:49)
[2024-04-03 20:05] LABS: BG BASE EXCESS 2.5 mmol/L (-2.0-3.0); BG CARBOXYHEMOGLOBIN 0.2 % (0.5-1.5); BG DEOXYHEMOGLOBIN 2.6 % (0.0-5.0); BG FRACTION INSPIRED OXYGEN 60; BG HCO3 ACT 25.5 mmol/L (21.0-28.0); BG METHEMOGLOBIN 0.1 % (0.5-1.5); BG OXYGEN SATURATION 97.4 % (94.0-98.0); BG OXYHEMOGLOBIN 97.1 % (94.0-98.0); BG PCO2 33.7 mmHg (32.0-45.0); BG PH 7.496 (7.350-7.450); BG TOTAL HEMOGLOBIN 11.7 g/dL (12.0-16.0); BG VENT MODE HIGH FLOW
[2024-04-04] VITALS (38 sets, daily range): BP systolic 110–155; BP diastolic 46–105; PULSE 102–135; RESP 13–34; TEMP 36.6–37.7; O2SAT 89–100
[2024-04-04 06:44] LABS: BASOPHILS % 0.3 % (0.0-2.0); EOSINOPHILS % 2.4 % (0.0-5.0); HEMATOCRIT. 34.3 % (36.0-48.0); HEMOGLOBIN. 11.2 g/dL (12.0-16.0); LYMPHOCYTES % 15.5 % (20.0-50.0); MEAN CORPUSCULAR HEMOGLOBIN 32.1 pg (28.0-32.0); MEAN CORPUSCULAR HGB CONC 32.5 g/dL (31.0-37.0); MEAN CORPUSCULAR VOLUME 98.9 fL (81.0-99.0); MEAN PLATELET VOLUME 9.2 fl (7.4-10.4); MONOCYTES % 5.7 % (2.0-8.0); NEUTROPHILS % 76.1 % (40.0-76.0); PLATELET 209 x1000/uL (130-400); RED BLOOD CELL COUNT 3.47 mill/uL (4.2-5.4); RED CELL DISTRIBUTION WIDTH 16.3 % (11.6-14.6); WHITE BLOOD COUNT 9.2 x1000/uL (4.5-11.0)
[2024-04-04 06:50] LABS: CHLORIDE 105 mEq/L (98-107); POTASSIUM 3.8 mEq/L (3.5-5.1); SODIUM 141 mEq/L (136-145)
[2024-04-04 06:51] LABS: CALCIUM 9.4 mg/dL (8.7-10.4); CARBON DIOXIDE 28 mEq/L (21-32)
[2024-04-04 06:56] LABS: CREATININE 0.5 mg/dL (0.6-1.0); GLUCOSE 135 mg/dL (70-105); UREA NITROGEN BLOOD 20 mg/dL (9-23)
[2024-04-05] VITALS (47 sets, daily range): BP systolic 74–201; BP diastolic 31–179; PULSE 68–152; RESP 14–37; TEMP 37.3–38.1; O2SAT 75–100
[2024-04-05] MEDS: ENOXAPARIN 40MG/0.4ML SYR SUBCUT SCH (08:44)
[2024-04-05 10:20] LABS: BG BASE EXCESS 2.3 mmol/L (-2.0-3.0); BG CARBOXYHEMOGLOBIN 0.3 % (0.5-1.5); BG DEOXYHEMOGLOBIN 9.5 % (0.0-5.0); BG FRACTION INSPIRED OXYGEN 100; BG HCO3 ACT 25.7 mmol/L (21.0-28.0); BG METHEMOGLOBIN 0.3 % (0.5-1.5); BG OXYGEN SATURATION 90.4 % (94.0-98.0); BG OXYHEMOGLOBIN 89.9 % (94.0-98.0); BG PCO2 35.6 mmHg (32.0-45.0); BG PH 7.476 (7.350-7.450); BG PO2 61.5 mmHg (83.0-108.0); BG SAMPLE SITE RIGHT RADIAL; BG TOTAL HEMOGLOBIN 11.2 g/dL (12.0-16.0); BG VENT MODE HIGH FLOW
[2024-04-05] MEDS: MIDODRINE HCL 5MG TABLET PO SCH (10:30)
[2024-04-05] MEDS: SODIUM CHLORIDE 0.45% 500 ML IV NR (10:47)
[2024-04-05] MEDS: SODIUM CHLORIDE 0.9% 500 ML IV NR (13:15)
[2024-04-05] MEDS: NOREPINEPHRINE 8MG/250ML PMX 250 ML IV PRN (15:15)
[2024-04-05] MEDS: PROPOFOL 10MG/ML 100ML 100 ML IV PRN (15:24)
[2024-04-05] MEDS ORDERED: VASOPRESSIN 20 UNIT in SODIUM CHLORIDE 0.9% 99 ML IV PRN (15:45)
[2024-04-05] MEDS: MIDAZOLAM 100MG/100ML PMX 100 ML IV PRN (18:11)
[2024-04-05] MEDS: PHENYLEPHRINE 50MG/250ML PMX 250 ML IV PRN (18:11)
[2024-04-05] MEDS: LACTATED RINGERS 1,000 ML IV SCH (18:12)
[2024-04-05] MEDS ORDERED: SODIUM CHLORIDE 0.9% 1,000 ML IV NR (18:30)
[2024-04-05] MEDS: SODIUM CHLORIDE 0.9% 1,000 ML IV SCH (19:00)
[2024-04-05 19:05] LABS: BG BASE EXCESS -1.7 mmol/L (-2.0-3.0); BG CARBOXYHEMOGLOBIN 0.3 % (0.5-1.5); BG DEOXYHEMOGLOBIN 0.3 % (0.0-5.0); BG FRACTION INSPIRED OXYGEN 100; BG HCO3 ACT 21.4 mmol/L (21.0-28.0); BG METHEMOGLOBIN 0.1 % (0.5-1.5); BG OXYGEN SATURATION 99.7 % (94.0-98.0); BG OXYHEMOGLOBIN 99.3 % (94.0-98.0); BG PCO2 31.1 mmHg (32.0-45.0); BG PH 7.456 (7.350-7.450); BG PO2 415.5 mmHg (83.0-108.0); BG SAMPLE SITE RIGHT RADIAL; BG VENT MODE VENT - AC
[2024-04-05] MEDS: IPRATROPIUM BROMIDE (0.02%) 0.5MG/2.5ML NEB HHN SCH (21:05)
[2024-04-05 21:06] LABS: BASOPHILS % 0.2 % (0.0-2.0); HEMATOCRIT. 32.6 % (36.0-48.0); HEMOGLOBIN. 10.5 g/dL (12.0-16.0); LYMPHOCYTES % 12.2 % (20.0-50.0); MEAN CORPUSCULAR HEMOGLOBIN 31.6 pg (28.0-32.0); MEAN CORPUSCULAR VOLUME 98.7 fL (81.0-99.0); MEAN PLATELET VOLUME 9.3 fl (7.4-10.4); MONOCYTES % 12.3 % (2.0-8.0); NEUTROPHILS % 74.3 % (40.0-76.0); PLATELET 256 x1000/uL (130-400); RED CELL DISTRIBUTION WIDTH 16.6 % (11.6-14.6); WHITE BLOOD COUNT 15.2 x1000/uL (4.5-11.0)
[2024-04-05 21:14] LABS: CHLORIDE 106 mEq/L (98-107); SODIUM 140 mEq/L (136-145)
[2024-04-05 21:15] LABS: CARBON DIOXIDE 26 mEq/L (21-32)
[2024-04-05 21:20] LABS: CREATININE 0.5 mg/dL (0.6-1.0); GLUCOSE 106 mg/dL (70-105); UREA NITROGEN BLOOD 16 mg/dL (9-23)
[2024-04-05 21:22] LABS: PHOSPHORUS 3.4 mg/dL (2.5-4.9)
[2024-04-06] VITALS (97 sets, daily range): BP systolic 86–185; BP diastolic 46–157; PULSE 66–144; RESP 13–38; TEMP 36.9–37.2; O2SAT 93–100
[2024-04-06 06:00] LABS: BASOPHILS % 0.5 % (0.0-2.0); EOSINOPHILS % 2.7 % (0.0-5.0); HEMATOCRIT. 32.7 % (36.0-48.0); HEMOGLOBIN. 10.7 g/dL (12.0-16.0); LYMPHOCYTES % 23.6 % (20.0-50.0); MEAN CORPUSCULAR HEMOGLOBIN 31.8 pg (28.0-32.0); MEAN CORPUSCULAR HGB CONC 32.7 g/dL (31.0-37.0); MEAN CORPUSCULAR VOLUME 97.4 fL (81.0-99.0); MEAN PLATELET VOLUME 9.5 fl (7.4-10.4); MONOCYTES % 7.5 % (2.0-8.0); NEUTROPHILS % 65.7 % (40.0-76.0); PLATELET 232 x1000/uL (130-400); RED BLOOD CELL COUNT 3.35 mill/uL (4.2-5.4); RED CELL DISTRIBUTION WIDTH 16.8 % (11.6-14.6)
[2024-04-06 06:04] LABS: CARBON DIOXIDE 28 mEq/L (21-32); CHLORIDE 109 mEq/L (98-107); POTASSIUM 4.1 mEq/L (3.5-5.1); SODIUM 145 mEq/L (136-145)
[2024-04-06 06:05] LABS: CALCIUM 9.3 mg/dL (8.7-10.4)
[2024-04-06 06:09] LABS: CREATININE 0.5 mg/dL (0.6-1.0); GLUCOSE 83 mg/dL (70-105)
[2024-04-06 06:10] LABS: TRIGLYCERIDE 147 mg/dL (0-150); UREA NITROGEN BLOOD 14 mg/dL (9-23)
[2024-04-06 06:12] LABS: PHOSPHORUS 3.5 mg/dL (2.5-4.9)
[2024-04-06] MEDS ORDERED: LIDOCAINE HCL/EPINEPHRINE 1%-EPI 1:100,000 20ML VIAL ONE (07:20)
[2024-04-06] MEDS: SODIUM CHLORIDE 3% FOR INH 15ML NEB INH SCH (08:23)
[2024-04-06] MEDS ORDERED: FENTANYL CITRATE/PF 50MCG/ML 2ML VIAL ONE (09:27)
[2024-04-06] MEDS: DEXTROSE 50% WATER 50ML SYRINGE IV PRN (09:50)
[2024-04-06] MEDS: MIDODRINE HCL 5MG TABLET PO SCH (12:53)
[2024-04-06] MEDS: PIPERACILLIN/TAZO 3.375G/100ML 100 ML IV SCH (12:53)
[2024-04-06] MEDS: METOPROLOL TARTRATE 25MG TABLET PO NR (16:45)
[2024-04-06] MEDS: SODIUM CHLORIDE 3% FOR INH 4ML NEB INH SCH (20:38)
[2024-04-06] MEDS: PIPERACILLIN/TAZO 3.375G/50ML 50 ML IV SCH (21:21)
[2024-04-06] MEDS ORDERED: FENTANYL CITRATE/PF 50MCG/ML 2ML VIAL IV PRN (22:30)
[2024-04-07] VITALS (104 sets, daily range): BP systolic 64–180; BP diastolic 17–153; PULSE 52–119; RESP 13–35; TEMP 36.9–37.1; O2SAT 87–100
[2024-04-07 05:54] LABS: CARBON DIOXIDE 25 mEq/L (21-32); CHLORIDE 108 mEq/L (98-107); POTASSIUM 3.6 mEq/L (3.5-5.1); SODIUM 143 mEq/L (136-145)
[2024-04-07 06:00] LABS: CREATININE 0.5 mg/dL (0.6-1.0); GLUCOSE 91 mg/dL (70-105); UREA NITROGEN BLOOD 11 mg/dL (9-23)
[2024-04-07 06:02] LABS: PHOSPHORUS 4.1 mg/dL (2.5-4.9)
[2024-04-07 08:30] LABS: BASOPHILS % 0.6 % (0.0-2.0); DIFFERENTIAL COMMENT 0; EOSINOPHILS % 3.2 % (0.0-5.0); HEMATOCRIT. 30.8 % (36.0-48.0); HEMOGLOBIN. 9.6 g/dL (12.0-16.0); LYMPHOCYTES % 22.7 % (20.0-50.0); MEAN CORPUSCULAR HEMOGLOBIN 31.4 pg (28.0-32.0); MEAN CORPUSCULAR HGB CONC 31.3 g/dL (31.0-37.0); MEAN CORPUSCULAR VOLUME 100.5 fL (81.0-99.0); MEAN PLATELET VOLUME 9.7 fl (7.4-10.4); MONOCYTES % 8.3 % (2.0-8.0); NEUTROPHILS % 65.2 % (40.0-76.0); PLATELET 184 x1000/uL (130-400); RED BLOOD CELL COUNT 3.06 mill/uL (4.2-5.4); RED CELL DISTRIBUTION WIDTH 17.3 % (11.6-14.6); WHITE BLOOD COUNT 7.9 x1000/uL (4.5-11.0)
[2024-04-07] MEDS: SODIUM CHLORIDE 0.9% 1,000 ML IV ONE (09:09)
[2024-04-07] MEDS ORDERED: PHENYLEPHRINE 100 MG in DEXT 5% WATER 240 ML IV PRN (19:15)
[2024-04-08] VITALS (97 sets, daily range): BP systolic 78–185; BP diastolic 47–174; PULSE 63–131; RESP 13–24; TEMP 36.1–37.7; O2SAT 98–100
[2024-04-08 10:30] LABS: HEMATOCRIT 28.5 % (36.0-48.0); HEMOGLOBIN 9.3 g/dL (12.0-16.0); MEAN CORPUSCULAR HEMOGLOBIN 31.5 pg (28.0-32.0); MEAN CORPUSCULAR HGB CONC 32.4 g/dL (31.0-37.0); MEAN CORPUSCULAR VOLUME 97.3 fL (81.0-99.0); PLATELET 154 x1000/uL (130-400); RED BLOOD CELL COUNT 2.93 mill/uL (4.2-5.4); RED CELL DISTRIBUTION WIDTH 16.6 % (11.6-14.6); WHITE BLOOD COUNT 3.9 x1000/uL (4.5-11.0)
[2024-04-08 10:36] LABS: CARBON DIOXIDE 25 mEq/L (21-32); CHLORIDE 111 mEq/L (98-107); POTASSIUM 3.8 mEq/L (3.5-5.1); SODIUM 145 mEq/L (136-145)
[2024-04-08 10:42] LABS: CREATININE 0.4 mg/dL (0.6-1.0); GLUCOSE 132 mg/dL (70-105); UREA NITROGEN BLOOD 9 mg/dL (9-23)
[2024-04-08] MEDS: SODIUM CHLORIDE 0.9% 1,000 ML IV ONE (11:15)
[2024-04-08 11:19] LABS: PHOSPHORUS 3.6 mg/dL (2.5-4.9)
[2024-04-08] MEDS: LORAZEPAM 2MG/ML INJ IV PRN (15:11)
[2024-04-08] MEDS: MIDODRINE HCL 5MG TABLET PO SCH (18:17)
[2024-04-08] MEDS: METOPROLOL TARTRATE 50MG TABLET PO SCH (21:15)
[2024-04-09] VITALS (52 sets, daily range): BP systolic 78–191; BP diastolic 53–167; PULSE 61–146; RESP 14–33; TEMP 36.8–37.3; O2SAT 97–100
[2024-04-09 06:21] LABS: CARBON DIOXIDE 28 mEq/L (21-32); CHLORIDE 108 mEq/L (98-107); POTASSIUM 4.4 mEq/L (3.5-5.1); SODIUM 143 mEq/L (136-145)
[2024-04-09 06:27] LABS: CREATININE 0.5 mg/dL (0.6-1.0); GLUCOSE 116 mg/dL (70-105)
[2024-04-09 06:28] LABS: UREA NITROGEN BLOOD 13 mg/dL (9-23)
[2024-04-09 08:15] LABS: BASOPHILS % 0.9 % (0.0-2.0); EOSINOPHILS % 4.1 % (0.0-5.0); HEMATOCRIT. 26.6 % (36.0-48.0); HEMOGLOBIN. 8.5 g/dL (12.0-16.0); LYMPHOCYTES % 25.1 % (20.0-50.0); MEAN CORPUSCULAR HEMOGLOBIN 31.3 pg (28.0-32.0); MEAN CORPUSCULAR HGB CONC 32.1 g/dL (31.0-37.0); MEAN CORPUSCULAR VOLUME 97.3 fL (81.0-99.0); MEAN PLATELET VOLUME 9.4 fl (7.4-10.4); MONOCYTES % 6.3 % (2.0-8.0); NEUTROPHILS % 63.6 % (40.0-76.0); PLATELET 163 x1000/uL (130-400); RED BLOOD CELL COUNT 2.73 mill/uL (4.2-5.4); RED CELL DISTRIBUTION WIDTH 16.5 % (11.6-14.6); WHITE BLOOD COUNT 4.1 x1000/uL (4.5-11.0)
[2024-04-09] MEDS ORDERED: MIDODRINE HCL 5MG TABLET PO SCH (09:00)
[2024-04-09 10:40] LABS: BG BASE EXCESS 2.5 mmol/L (-2.0-3.0); BG CARBOXYHEMOGLOBIN 0.3 % (0.5-1.5); BG DEOXYHEMOGLOBIN 1.6 % (0.0-5.0); BG FRACTION INSPIRED OXYGEN 40; BG HCO3 ACT 26.6 mmol/L (21.0-28.0); BG OXYGEN SATURATION 98.4 % (94.0-98.0); BG OXYHEMOGLOBIN 98.1 % (94.0-98.0); BG PCO2 38.9 mmHg (32.0-45.0); BG PH 7.452 (7.350-7.450); BG PO2 116.7 mmHg (83.0-108.0); BG SAMPLE SITE LEFT RADIAL; BG TOTAL HEMOGLOBIN 9.8 g/dL (12.0-16.0); BG VENT MODE VENT - AC
[2024-04-09] MEDS: SODIUM CHLORIDE 0.45% 500 ML IV NR (10:44)
[2024-04-09] MEDS: METOPROLOL TARTRATE 50MG TABLET NG NR (18:18)
[2024-04-10] VITALS (22 sets, daily range): BP systolic 122–157; BP diastolic 68–99; PULSE 85–134; RESP 14–29; TEMP 36.2–37.6; O2SAT 94–100
[2024-04-10 05:56] LABS: BASOPHILS % 0.7 % (0.0-2.0); EOSINOPHILS % 2.9 % (0.0-5.0); HEMATOCRIT. 30.7 % (36.0-48.0); HEMOGLOBIN. 9.9 g/dL (12.0-16.0); LYMPHOCYTES % 17.3 % (20.0-50.0); MEAN CORPUSCULAR HEMOGLOBIN 31.5 pg (28.0-32.0); MEAN CORPUSCULAR HGB CONC 32.2 g/dL (31.0-37.0); MEAN CORPUSCULAR VOLUME 97.8 fL (81.0-99.0); MEAN PLATELET VOLUME 9.4 fl (7.4-10.4); MONOCYTES % 8.4 % (2.0-8.0); NEUTROPHILS % 70.7 % (40.0-76.0); PLATELET 174 x1000/uL (130-400); RED BLOOD CELL COUNT 3.14 mill/uL (4.2-5.4); WHITE BLOOD COUNT 5.2 x1000/uL (4.5-11.0)
[2024-04-10 06:23] LABS: CALCIUM 9.4 mg/dL (8.7-10.4); CHLORIDE 105 mEq/L (98-107); POTASSIUM 3.9 mEq/L (3.5-5.1); SODIUM 141 mEq/L (136-145)
[2024-04-10 06:24] LABS: CARBON DIOXIDE 25 mEq/L (21-32)
[2024-04-10 06:29] LABS: CREATININE 0.5 mg/dL (0.6-1.0); GLUCOSE 121 mg/dL (70-105); UREA NITROGEN BLOOD 17 mg/dL (9-23)
[2024-04-10] MEDS: SODIUM CHLORIDE 0.45% 500 ML IV ONE (09:40)
[2024-04-11] VITALS (24 sets, daily range): BP systolic 125–166; BP diastolic 74–107; PULSE 99–145; RESP 15–36; TEMP 32.9–37.4; O2SAT 98–100
[2024-04-11 09:38] LABS: BG CARBOXYHEMOGLOBIN 0.3 % (0.5-1.5); BG DEOXYHEMOGLOBIN 1.1 % (0.0-5.0); BG FRACTION INSPIRED OXYGEN 40; BG HCO3 ACT 23.8 mmol/L (21.0-28.0); BG OXYGEN SATURATION 98.9 % (94.0-98.0); BG OXYHEMOGLOBIN 98.6 % (94.0-98.0); BG PCO2 31.8 mmHg (32.0-45.0); BG PH 7.492 (7.350-7.450); BG PO2 123.8 mmHg (83.0-108.0); BG SAMPLE SITE RIGHT BRACHIAL; BG VENT MODE VENT - AC
[2024-04-11 10:21] LABS: CHLORIDE 105 mEq/L (98-107); POTASSIUM 4.5 mEq/L (3.5-5.1); SODIUM 139 mEq/L (136-145)
[2024-04-11 10:22] LABS: CARBON DIOXIDE 26 mEq/L (21-32)
[2024-04-11 10:23] LABS: CALCIUM 9.5 mg/dL (8.7-10.4)
[2024-04-11 10:28] LABS: CREATININE 0.5 mg/dL (0.6-1.0); GLUCOSE 117 mg/dL (70-105); UREA NITROGEN BLOOD 17 mg/dL (9-23)
[2024-04-12] VITALS (23 sets, daily range): BP systolic 105–153; BP diastolic 78–101; PULSE 99–130; RESP 14–26; TEMP 35.9–36.6; O2SAT 98–100
[2024-04-12] MEDS: BENZTROPINE MESYLATE 1MG TABLET PO SCH (10:44)
[2024-04-12 14:16] LABS: BG CARBOXYHEMOGLOBIN 0.6 % (0.5-1.5); BG DEOXYHEMOGLOBIN 1.4 % (0.0-5.0); BG FRACTION INSPIRED OXYGEN 35; BG HCO3 ACT 27.6 mmol/L (21.0-28.0); BG METHEMOGLOBIN 0.3 % (0.5-1.5); BG OXYGEN SATURATION 98.6 % (94.0-98.0); BG OXYHEMOGLOBIN 97.7 % (94.0-98.0); BG PCO2 37.9 mmHg (32.0-45.0); BG PO2 120.1 mmHg (83.0-108.0); BG SAMPLE SITE RIGHT RADIAL; BG TOTAL HEMOGLOBIN 11.2 g/dL (12.0-16.0); BG VENT MODE VENT - AC
[2024-04-13] VITALS (20 sets, daily range): BP systolic 119–137; BP diastolic 68–103; PULSE 98–132; RESP 14–26; TEMP 36.1–36.8; O2SAT 97–100
[2024-04-13] MEDS: IPRATROPIUM BROMIDE (0.02%) 0.5MG/2.5ML NEB HHN SCH (08:48)
[2024-04-13 09:59] LABS: HEMATOCRIT 37.3 % (36.0-48.0); MEAN CORPUSCULAR HGB CONC 32.2 g/dL (31.0-37.0); MEAN CORPUSCULAR VOLUME 99.2 fL (81.0-99.0); PLATELET 321 x1000/uL (130-400); RED BLOOD CELL COUNT 3.75 mill/uL (4.2-5.4); RED CELL DISTRIBUTION WIDTH 17.5 % (11.6-14.6); WHITE BLOOD COUNT 10.7 x1000/uL (4.5-11.0)
[2024-04-13 11:37] LABS: BG BASE EXCESS 3.4 mmol/L (-2.0-3.0); BG CARBOXYHEMOGLOBIN 0.9 % (0.5-1.5); BG DEOXYHEMOGLOBIN 0.8 % (0.0-5.0); BG FRACTION INSPIRED OXYGEN 35; BG HCO3 ACT 27.6 mmol/L (21.0-28.0); BG METHEMOGLOBIN 0.2 % (0.5-1.5); BG OXYGEN SATURATION 99.2 % (94.0-98.0); BG OXYHEMOGLOBIN 98.1 % (94.0-98.0); BG PCO2 40.6 mmHg (32.0-45.0); BG PO2 144.4 mmHg (83.0-108.0); BG SAMPLE SITE RIGHT RADIAL; BG TOTAL HEMOGLOBIN 14.5 g/dL (12.0-16.0); BG VENT MODE VENT - AC
[2024-04-13] MEDS: SODIUM CHLORIDE 3% FOR INH 4ML NEB INH NR (11:55)
[2024-04-14] VITALS (24 sets, daily range): BP systolic 114–142; BP diastolic 65–102; PULSE 101–132; RESP 14–36; TEMP 36.2–37.7; O2SAT 97–100
[2024-04-14] MEDS: LORAZEPAM 1MG TABLET PO PRN (03:40)
[2024-04-14 06:19] LABS: CHLORIDE 103 mEq/L (98-107); POTASSIUM 4.5 mEq/L (3.5-5.1); SODIUM 139 mEq/L (136-145)
[2024-04-14 06:20] LABS: CALCIUM 9.4 mg/dL (8.7-10.4); CARBON DIOXIDE 28 mEq/L (21-32)
[2024-04-14 06:25] LABS: CREATININE 0.5 mg/dL (0.6-1.0); GLUCOSE 106 mg/dL (70-105); UREA NITROGEN BLOOD 22 mg/dL (9-23)
[2024-04-14 07:29] LABS: BASOPHILS % 0.7 % (0.0-2.0); EOSINOPHILS % 2.4 % (0.0-5.0); HEMATOCRIT. 32.3 % (36.0-48.0); HEMOGLOBIN. 10.6 g/dL (12.0-16.0); MEAN CORPUSCULAR HEMOGLOBIN 31.6 pg (28.0-32.0); MEAN CORPUSCULAR VOLUME 95.7 fL (81.0-99.0); MEAN PLATELET VOLUME 9.3 fl (7.4-10.4); MONOCYTES % 6.3 % (2.0-8.0); NEUTROPHILS % 70.6 % (40.0-76.0); PLATELET 329 x1000/uL (130-400); RED BLOOD CELL COUNT 3.37 mill/uL (4.2-5.4); RED CELL DISTRIBUTION WIDTH 16.9 % (11.6-14.6); WHITE BLOOD COUNT 9.3 x1000/uL (4.5-11.0)
[2024-04-14 09:06] LABS: BG BASE EXCESS 2.9 mmol/L (-2.0-3.0); BG CARBOXYHEMOGLOBIN 0.6 % (0.5-1.5); BG DEOXYHEMOGLOBIN 0.3 % (0.0-5.0); BG FRACTION INSPIRED OXYGEN 65; BG HCO3 ACT 26.6 mmol/L (21.0-28.0); BG METHEMOGLOBIN 0.2 % (0.5-1.5); BG OXYGEN SATURATION 99.7 % (94.0-98.0); BG OXYHEMOGLOBIN 98.9 % (94.0-98.0); BG PCO2 37.7 mmHg (32.0-45.0); BG PH 7.467 (7.350-7.450); BG PO2 240.8 mmHg (83.0-108.0); BG SAMPLE SITE LEFT RADIAL; BG TOTAL HEMOGLOBIN 12.4 g/dL (12.0-16.0); BG VENT MODE VENT - AC
[2024-04-15] VITALS (24 sets, daily range): BP systolic 83–182; BP diastolic 58–144; PULSE 92–138; RESP 12–40; TEMP 36.7–37.9; O2SAT 96–100
[2024-04-15] MEDS: CLONIDINE 0.1MG TABLET PO PRN (08:37)
[2024-04-15] MEDS ORDERED: HYDRALAZINE 20MG/ML VIAL IV PRN (10:00)
[2024-04-15 12:39] LABS: CARBON DIOXIDE 27 mEq/L (21-32); CHLORIDE 104 mEq/L (98-107); POTASSIUM 4.9 mEq/L (3.5-5.1); SODIUM 141 mEq/L (136-145)
[2024-04-15 12:40] LABS: CALCIUM 9.2 mg/dL (8.7-10.4)
[2024-04-15 12:44] LABS: CREATININE 0.5 mg/dL (0.6-1.0)
[2024-04-15 12:45] LABS: GLUCOSE 134 mg/dL (70-105); UREA NITROGEN BLOOD 27 mg/dL (9-23)
[2024-04-15 12:55] LABS: HEMATOCRIT 31.5 % (36.0-48.0); HEMOGLOBIN 10.3 g/dL (12.0-16.0); MEAN CORPUSCULAR HEMOGLOBIN 30.7 pg (28.0-32.0); MEAN CORPUSCULAR HGB CONC 32.8 g/dL (31.0-37.0); MEAN CORPUSCULAR VOLUME 93.5 fL (81.0-99.0); PLATELET 254 x1000/uL (130-400); RED BLOOD CELL COUNT 3.37 mill/uL (4.2-5.4); RED CELL DISTRIBUTION WIDTH 16.7 % (11.6-14.6); WHITE BLOOD COUNT 7.7 x1000/uL (4.5-11.0)
[2024-04-16] VITALS (23 sets, daily range): BP systolic 102–151; BP diastolic 61–106; PULSE 87–123; RESP 11–24; TEMP 35.6–37.8; O2SAT 96–100
== END 2024-04-16 23:40 | DRG 4 ==
LOC: ER 00:49 → CVICU 21:30 → UNDODISIN 03-20 07:18 → 5EST 04-04 14:20 → MICUSO 04-05 16:40 → 5EST 04-08 00:43
PROVIDERS: ADMIT Internal Medicine; ATTEND Internal Medicine
PROC: 5A1955Z Respiratory Ventilation, Greater than 96 Consecutive Hours (ICD-10-PCS; principal; 2024-03-14)
PROC: 0BH17EZ Insertion of Endotracheal Airway into Trachea, Via Natural or Artificial Opening (ICD-10-PCS; 2024-03-14)
PROC: 0W9B30Z Drainage of Left Pleural Cavity with Drainage Device, Percutaneous Approach (ICD-10-PCS; 2024-03-14)
PROC: 02HV33Z Insertion of Infusion Device into Superior Vena Cava, Percutaneous Approach (ICD-10-PCS; 2024-03-14)
PROC: B548ZZA Ultrasonography of Superior Vena Cava, Guidance (ICD-10-PCS; 2024-03-14)
PROC: 5A1955Z Respiratory Ventilation, Greater than 96 Consecutive Hours (ICD-10-PCS; 2024-03-23)
PROC: 0BH17EZ Insertion of Endotracheal Airway into Trachea, Via Natural or Artificial Opening (ICD-10-PCS; 2024-03-23)
PROC: 0BH17EZ Insertion of Endotracheal Airway into Trachea, Via Natural or Artificial Opening (ICD-10-PCS; 2024-04-05)
PROC: 5A1955Z Respiratory Ventilation, Greater than 96 Consecutive Hours (ICD-10-PCS; 2024-04-05)
PROC: 0B110F4 Bypass Trachea to Cutaneous with Tracheostomy Device, Open Approach (ICD-10-PCS; 2024-04-06)
DX: A41.81 Sepsis due to Enterococcus (principal); G92.8 Other toxic encephalopathy; J96.01 Acute respiratory failure with hypoxia; R65.21 Severe sepsis with septic shock; J93.0 Spontaneous tension pneumothorax; J15.212 Pneumonia due to Methicillin resistant Staphylococcus aureus; J69.0 Pneumonitis due to inhalation of food and vomit; E87.0 Hyperosmolality and hypernatremia; E87.20 Acidosis, unspecified; Z99.11 Dependence on respirator [ventilator] status; Z20.822 Contact with and (suspected) exposure to COVID-19; E03.9 Hypothyroidism, unspecified; R62.50 Unspecified lack of expected normal physiological development in childhood; F31.9 Bipolar disorder, unspecified; R13.10 Dysphagia, unspecified; I34.1 Nonrheumatic mitral (valve) prolapse; E83.42 Hypomagnesemia; E83.39 Other disorders of phosphorus metabolism; D69.6 Thrombocytopenia, unspecified; I10 Essential (primary) hypertension; L89.156 Pressure-induced deep tissue damage of sacral region; D50.9 Iron deficiency anemia, unspecified; F79 Unspecified intellectual disabilities; G24.01 Drug induced subacute dyskinesia; Z93.1 Gastrostomy status; Z87.01 Personal history of pneumonia (recurrent); Z74.01 Bed confinement status
CPT/HCPCS: 31500; 32551; 36415; 36556; 36573; 36600; 71045; 71250; 74018; 74176; 76604; 80048; 80051; 80053; 80076; 80202; 80339; 81003; 82375; 82728; 82805; 82962; 83036; 83540; 83550; 83605; 83735; 83880; 84100; 84145; 84439; 84443; 84478; 84480; 84484; 85025; 85027; 85379; 86850; 86900; 87070; 87077; 87186; 87426; 87804; 93005; 93306; 94002; 94003; 94070; 94640; 94664; 94760; 97163; 98960; 99291; A4606; A4663; A6261; C1725; J0290; J0360; J0692; J1160; J1630; J1650; J1815; J1940; J1953; J2003; J2004; J2060; J2250; J2470; J2543; J2704; J2920; J3010; J3370; J3475; J3480; J3490; J7030; J7050; J7060; J7120; J7608; P9041; Q9957